=== PATIENT | female | born 1945 | race Caucasian/White ===

== ENCOUNTER 2019-01-12 15:04 | Emergency (ER) | payer MEDICARE, SELFPAY ==
[2019-01-12 15:05] VITALS: BP 192/105; PULSE 81; RESP 16; TEMP 36.8; O2SAT 97; BMI 19.5
--- NOTE | 2019-01-12 15:19 | ED.DCSUM_ITS ---
- ER Visit Summary Date of Service: 01/12/19 Chief Complaint: Facial laceration History of Present Illness: The patient is a 74 F presenting after fall. Patient states she woke up from her nap. She was trying to answer the phone and tripped over a register on the floor. She hit her head. She did not lose consciousness. No amnesia to the event. No vomiting. No headache. She is not on anticoagulants. Last tetanus is unknown. She is able to ambulate. No other injuries. Physical Examination: Vitals are stable. Patient is afebrile. Alert no acute distress. HEENT exam 2.5 cm laceration right forehead Neck is nontender Lungs are clear and equal bilaterally. Heart is regular rate and rhythm. Extremities are unremarkable. Skin is warm and dry. No focal neurologic deficit. Remainder of exam is unremarkable. Emergency Department Course and Treatment: She was given tetanus IM. Wound was irrigated. Anesthetized with lidocaine. 4, 5-0 simple sutures were placed. Patient tolerated this well. Advised wound care instructions. Advised return to the ED for worsening complaints. Disposition: Discharge home Impression: Facial laceration, laceration repair This note was generated with [employer] dictation software. It may contain incorrect words, spelling, and punctuation that were not noted in review of the chart prior to signing ED Disposition - Plan for ED Patient: Instructions: LACERATION, Face (Suture or Tape) Referrals: Az Kapadia MD [Primary Care Provider] -
[2019-01-12] MEDS: Diphth,Pertuss(Acell),Tet Vac 0.5 ML Vial IM (16:04)
== END 2019-01-12 16:18 | disposition home or self-care (01) ==
LOC: ED 15:45
PROVIDERS: Emergency Provider Emergency Medicine; Family Provider Family Medicine; PCP Family Medicine
DX: S01.81XA Laceration without foreign body of other part of head, initial encounter (principal); W01.198A Fall on same level from slipping, tripping and stumbling with subsequent striking against other object, initial encounter; Y93.9 Activity, unspecified; Y92.009 Unspecified place in unspecified non-institutional (private) residence as the place of occurrence of the external cause; Y99.9 Unspecified external cause status; Z23 Encounter for immunization
CPT/HCPCS: 12011; 90471; 90715; 99284

== ENCOUNTER → 2019-01-16 14:59 | Outpatient (CLI) | payer MEDICARE, SELFPAY ==
[2019-01-12 15:05] VITALS: BMI 19.5
[2019-01-16 15:02] LABS: Bacteria 0 SEEN /hpf (None Seen); Mucous, Urine 0 SEEN /hpf (<or=2+); Red Blood Cells-Urine 0 SEEN /hpf (0-5); Squamous Epithelial Cells - UA 0 SEEN /hpf (5-10); White Blood Cells 0 SEEN /hpf (0-5)
[2019-01-16 17:39] LABS: Color, Urine Yellow (Yellow); Glucose, Dipstick Normal (Normal); Ketone-Dipstick 5 mg/dl (Negative); Leukocyte Esterase-Dipstick Negative /ul (Negative); Nitrite-Dipstick Negative (Negative); Occult Blood-Urine Negative /ul (Negative); Protein-Dipstick 30 mg/dl (Negative); Urine Bilirubin Dipstick Negative (Negative); Urine Clarity Clear (Clear); Urine Urobilinogen Normal (Normal)
[2019-01-16 18:05] LABS: ALB/GLOB Ratio 1.1 RATIO (0.9-2.4); AST(SGOT) 21 U/L (15-37); Alanine Aminotransfer ALT/SGPT 15 U/L (13-56); Alkaline Phosphatase 128 U/L (45-117); Anion Gap 10 (5-15); BUN 10 mg/dL (7-18); BUN/Creat Ratio 16.3 RATIO (10-20); Calcium,Total 8.8 mg/dL (8.5-10.1); Chloride 106 mmol/L (98-107); Cholesterol 231 mg/dL (200); Creatinine, Serum 0.61 mg/dL (0.55-1.02); EST Glomerular Filtration Rate 102 mL/min (>60); Est Glom Filt Rate - Afr Amer 123 mL/min (>60); Globulin 3.6 g/dL (2.2-4.2); Glucose 102 mg/dL (74-106); High Density Lipoprotein 88 mg/dL; Potassium 3.3 mmol/L (3.5-5.1); Protein, Total 7.6 g/dL (6.4-8.2); Sodium Level 139 mmol/L (136-145); Thyroid Stim Hormone (TSH) 0.77 uIU/mL (0.358-3.74); Triglycerides 68 mg/dL; Very Low Density Lipoprotein 14 mg/dL (5-40)
[2019-01-16 18:09] LABS: Absolute Lymphocyte Count 2.32 X10^3/uL (0.83-4.51); Absolute Neutrophil Count 4.1 X10^3/uL (2.0-7.7); Basophil# 0.09 X10^3/uL; Basophil% 1.2 % (0-1); Eosinophil# 0.28 X10^3/uL; Eosinophils% 3.7 % (0-5); Hematocrit 32.2 % (37-47); Hemoglobin 9.9 g/dL (12.0-15.0); Lymphocyte # 2.32 X10^3/ul (4.0); Lymphocyte % 30.5 % (19-41); Mean Corp Hgb Conc 30.7 g/dL (32-36); Mean Corpuscular Hgb 27.5 pg (27.0-32.0); Mean Corpuscular Volume 89.4 fL (81-99); Mean Platelet Vol. 11.3 fl (6.2-12.0); Monocyte# 0.78 X10^3/uL; Monocyte% 10.2 % (0-10); NRBC Flagged by Analyzer 0 % (0-5); Neutrophil # 4.11 X10^3/uL (2.7-7.7); Platelet Count 383 K/mm3 (150-450); RBC Distribution Width CV 15.9 % (11.6-14.6); RBC Distribution Width SD 52.6 fl (35.1-43.9); White Blood Count 7.6 K/mm3 (4.4-11.0)
[2019-01-17 12:00] LABS: Ferritin 14 ng/mL (8-252); Iron 19 ug/dL (50-170); Iron Binding Capacity,Total 425 ug/dL (250-450); PERCENT IRON SATURATION 4.5 % (15.0-55.0)
[2019-01-17 12:29] LABS: Vitamin B12 307 pg/mL (211-911)
== END ==
PROVIDERS: Family Provider Family Medicine; PCP Family Medicine; Referring Provider Family Medicine; Visit Provider Family Medicine
DX: D64.9 Anemia, unspecified (principal); I10 Essential (primary) hypertension
CPT/HCPCS: 36415; 80053; 80061; 81001; 82607; 82728; 83540; 83550; 84443; 85025

== ENCOUNTER → 2019-01-24 11:27 | Outpatient (CLI) | payer MEDICARE, SELFPAY ==
[2019-01-12 15:05] VITALS: BMI 19.5
--- NOTE | 2019-01-24 11:36 | RAD_ITS ---
STUDY: X-RAY - LEFT WRIST REASON FOR EXAM: Female, 74 years old. Pain for 2 weeks after falling. Posterior swelling and redness. TECHNIQUE: 3 view(s) of the wrist were obtained. COMPARISON: None. FINDINGS: Demineralized osseous structures without a fracture deformity of the radius or ulna. Chondrocalcinosis of the radiocarpal joint. Normal distal radioulnar articulation. Normal carpal bones. Normal carpal articulations. There is degenerative arthrosis of the carpometacarpal articulation of the thumb. Normal second through fifth carpometacarpal articulations. Normal visualized metacarpal bones. Soft tissue swelling. RAD/Wrist min 3 Views IMPRESSION: Demineralized osseous structures without acute fracture deformity. 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 Electronically Signed: Emy Smallwood MD at 23:56 EST , Service support ,
[2019-01-24 14:31] LABS: Vitamin B12 344 pg/mL (211-911)
[2019-01-24 15:11] LABS: Ferritin 18 ng/mL (8-252); Iron 18 ug/dL (50-170); Iron Binding Capacity,Total 379 ug/dL (250-450); PERCENT IRON SATURATION 4.7 % (15.0-55.0); Uric Acid 2.9 mg/dL (2.6-6.0)
== END ==
PROVIDERS: Family Provider Family Medicine; PCP Family Medicine; Referring Provider Family Medicine; Visit Provider Family Medicine
DX: M25.532 Pain in left wrist (principal); D64.9 Anemia, unspecified
CPT/HCPCS: 36415; 73110; 82607; 82728; 82746; 83540; 83550; 84550

== ENCOUNTER → 2019-01-29 14:36 | Outpatient (CLI) | payer MEDICARE, SELFPAY ==
[2019-01-12 15:05] VITALS: BMI 19.5
--- NOTE | 2019-01-29 14:38 | ECHOD_ITS ---
Version 2 Reason For Study: LVH Procedure This was a 2D Doppler, Color Flow transthoracic echocardiogram. The study was technically difficult. Exam performed in department. Left Ventricle Normal LV size. Left ventricular systolic function is normal. Stage 2 diastolic dysfunction. The estimated ejection fraction is 60 %. No regional wall motion abnormalities noted. Right Ventricle Normal RV size. Normal systolic function. Atria Normal left atrium. Normal right atrium. Mitral Valve Normal mitral valve. Tricuspid Valve Normal tricuspid valve. Mild (1+) tricuspid valve insufficiency. Pulmonary artery systolic pressure is 44 mmHg. Aortic Valve Normal aortic valve. Pulmonic Valve Normal pulmonic valve. Great Vessels Normal aortic root. The pulmonary artery is normal size. Normal inferior vena cava. Pericardium/Pleural Trivial pericardial effusion. MMode/2D Measurements & Calculations LVIDd: 3.9 cm IVSd: 0.84 cm Ao root diam: 3.3 cm LVIDs: 2.7 cm LVPWd: 0.77 cm RVDd: 3.6 cm FS: 31.8 % LAV(MOD-bp): 48.5 ml LA A4 area: 17.2 cm2 LA dimension(2D): 4.0 cm LAV(MOD-bp) Indexed: 30.2 ml/m2 LAV(MOD-sp2): 53.2 ml LAV(MOD-sp4): 42.3 ml RA A4 area: 11.3 cm2 Time Measurements MV dec time: 0.17 sec Doppler Measurements & Calculations MV E max nicolás: 107.6 cm/sec Lat Peak E' Nicolás: 6.1 cm/sec Med Peak E' Nicolás: 6.1 cm/sec MV A max nicolás: 82.7 cm/sec E/E' lat: 17.7 E/E' med: 17.7 MV E/A: 1.3 Ao V2 max: 162.1 cm/sec LV V1 max: 135.0 cm/sec PA V2 max: 90.3 cm/sec Ao max P.5 mmHg LV V1 max P.3 mmHg TR max nicolás: 315.2 cm/sec TR max P.7 mmHg Interpretation Summary Normal LV size. Left ventricular systolic function is normal. Stage 2 diastolic dysfunction. Mild (1+) tricuspid valve insufficiency. Trivial pericardial effusion. The estimated ejection fraction is 60 %. Ordering Physician: Az Bernardo Referring Physician: Az Bernardo Performed By: Nisha Caballero, CAITIE, RVT
== END ==
PROVIDERS: Family Provider Family Medicine; PCP Family Medicine; Referring Provider Family Medicine; Visit Provider Family Medicine
DX: I51.7 Cardiomegaly (principal)
CPT/HCPCS: 93306

== ENCOUNTER → 2019-02-15 09:45 | Outpatient (CLI) | payer MEDICARE, SELFPAY ==
[2019-02-15 12:20] LABS: Absolute Lymphocyte Count 1.05 X10^3/uL (0.83-4.51); Absolute Neutrophil Count 4.2 X10^3/uL (2.0-7.7); Basophil# 0.05 X10^3/uL; Basophil% 0.8 % (0-1); Eosinophil# 0.23 X10^3/uL; Eosinophils% 3.7 % (0-5); Hematocrit 35.2 % (37-47); Hemoglobin 10.9 g/dL (12.0-15.0); Lymphocyte # 1.05 X10^3/ul (4.0); Lymphocyte % 16.7 % (19-41); Mean Corpuscular Hgb 26.3 pg (27.0-32.0); Mean Platelet Vol. 10.5 fl (6.2-12.0); Monocyte# 0.78 X10^3/uL; Monocyte% 12.4 % (0-10); NRBC Flagged by Analyzer 0 % (0-5); Neutrophil # 4.16 X10^3/uL (2.7-7.7); Neutrophil % 65.9 % (47-70); Platelet Count 361 K/mm3 (150-450); RBC Distribution Width CV 17.4 % (11.6-14.6); RBC Distribution Width SD 54.2 fl (35.1-43.9); Red Blood Count 4.14 M/mm3 (4.2-5.4); White Blood Count 6.3 K/mm3 (4.4-11.0)
[2019-02-15 13:25] LABS: Anion Gap 8 (5-15); BUN 11 mg/dL (7-18); BUN/Creat Ratio 17.4 RATIO (10-20); Calcium,Total 8.8 mg/dL (8.5-10.1); Chloride 105 mmol/L (98-107); Creatinine, Serum 0.63 mg/dL (0.55-1.02); EST Glomerular Filtration Rate 98 mL/min (>60); Est Glom Filt Rate - Afr Amer 119 mL/min (>60); Ferritin 31 ng/mL (8-252); Glucose 86 mg/dL (74-106); Iron 40 ug/dL (50-170); Iron Binding Capacity,Total 364 ug/dL (250-450); Potassium 3.7 mmol/L (3.5-5.1); Sodium Level 137 mmol/L (136-145)
== END ==
PROVIDERS: Family Provider Family Medicine; PCP Family Medicine; Visit Provider Family Medicine
DX: D50.9 Iron deficiency anemia, unspecified (principal); I10 Essential (primary) hypertension
CPT/HCPCS: 36415; 80048; 82728; 83540; 83550; 85025

== ENCOUNTER → 2019-07-03 11:06 | Outpatient (CLI) | payer MEDICARE, SELFPAY ==
[2019-07-03 15:03] LABS: Absolute Lymphocyte Count 1.97 X10^3/uL (0.83-4.51); Absolute Neutrophil Count 8.3 X10^3/uL (2.0-7.7); Basophil# 0.03 X10^3/uL; Basophil% 0.3 % (0-1); Eosinophil# 0.15 X10^3/uL; Eosinophils% 1.3 % (0-5); Hematocrit 36.2 % (37-47); Hemoglobin 11.2 g/dL (12.0-15.0); Lymphocyte # 1.97 X10^3/ul (4.0); Lymphocyte % 17.2 % (19-41); Mean Corp Hgb Conc 30.9 g/dL (32-36); Mean Corpuscular Volume 97.1 fL (81-99); Mean Platelet Vol. 9.8 fl (6.2-12.0); Monocyte# 1.04 X10^3/uL; Monocyte% 9.1 % (0-10); NRBC Flagged by Analyzer 0 % (0-5); Neutrophil # 8.25 X10^3/uL (2.7-7.7); Neutrophil % 71.8 % (47-70); Platelet Count 604 K/mm3 (150-450); RBC Distribution Width CV 13.8 % (11.6-14.6); RBC Distribution Width SD 49.1 fl (35.1-43.9); Red Blood Count 3.73 M/mm3 (4.2-5.4); White Blood Count 11.5 K/mm3 (4.4-11.0)
[2019-07-03 15:24] LABS: AST(SGOT) 18 U/L (15-37); Alanine Aminotransfer ALT/SGPT 18 U/L (13-56); Albumin, Serum 3.6 g/dL (3.2-5.0); Alkaline Phosphatase 90 U/L (45-117); Anion Gap 11 (5-15); BUN 19 mg/dL (7-18); BUN/Creat Ratio 20.5 RATIO (10-20); Calcium,Total 9.2 mg/dL (8.5-10.1); Chloride 98 mmol/L (98-107); Creatinine, Serum 0.93 mg/dL (0.55-1.02); EST Glomerular Filtration Rate 63 mL/min (>60); Est Glom Filt Rate - Afr Amer 76 mL/min (>60); Ferritin 31 ng/mL (8-252); Globulin 3.5 g/dL (2.2-4.2); Glucose 115 mg/dL (74-106); Iron 59 ug/dL (50-170); Iron Binding Capacity,Total 331 ug/dL (250-450); Potassium 3.6 mmol/L (3.5-5.1); Protein, Total 7.1 g/dL (6.4-8.2); Sodium Level 134 mmol/L (136-145)
== END ==
PROVIDERS: PCP Family Medicine; Visit Provider Family Medicine
DX: D50.9 Iron deficiency anemia, unspecified (principal); I10 Essential (primary) hypertension
CPT/HCPCS: 36415; 80053; 82728; 83540; 83550; 85025

== ENCOUNTER → 2019-11-06 10:15 | Outpatient (CLI) | payer MEDICARE, SELFPAY ==
[2019-11-06 12:38] LABS: Absolute Lymphocyte Count 1.64 X10^3/uL (0.83-4.51); Absolute Neutrophil Count 4.6 X10^3/uL (2.0-7.7); Basophil# 0.06 X10^3/uL; Basophil% 0.8 % (0-1); Eosinophil# 0.23 X10^3/uL; Eosinophils% 3.1 % (0-5); Hematocrit 41.6 % (37-47); Hemoglobin 13.8 g/dL (12.0-15.0); Lymphocyte # 1.64 X10^3/ul (4.0); Lymphocyte % 22.2 % (19-41); Mean Corp Hgb Conc 33.2 g/dL (32-36); Mean Corpuscular Volume 93.5 fL (81-99); Mean Platelet Vol. 10.6 fl (6.2-12.0); Monocyte% 10.8 % (0-10); NRBC Flagged by Analyzer 0 % (0-5); Neutrophil # 4.63 X10^3/uL (2.7-7.7); Neutrophil % 62.8 % (47-70); Platelet Count 389 K/mm3 (150-450); RBC Distribution Width CV 14.6 % (11.6-14.6); RBC Distribution Width SD 50.2 fl (35.1-43.9); Red Blood Count 4.45 M/mm3 (4.2-5.4); White Blood Count 7.4 K/mm3 (4.4-11.0)
[2019-11-06 12:55] LABS: ALB/GLOB Ratio 1.3 RATIO (0.9-2.4); AST(SGOT) 22 U/L (15-37); Alanine Aminotransfer ALT/SGPT 18 U/L (13-56); Albumin, Serum 4.3 g/dL (3.2-5.0); Alkaline Phosphatase 116 U/L (45-117); Anion Gap 9 (5-15); BUN 9 mg/dL (7-18); BUN/Creat Ratio 13.3 RATIO (10-20); Calcium,Total 9.6 mg/dL (8.5-10.1); Chloride 100 mmol/L (98-107); Creatinine, Serum 0.68 mg/dL (0.55-1.02); EST Glomerular Filtration Rate 90 mL/min (>60); Est Glom Filt Rate - Afr Amer 109 mL/min (>60); Ferritin 100 ng/mL (8-252); Globulin 3.2 g/dL (2.2-4.2); Glucose 112 mg/dL (74-106); Iron 154 ug/dL (50-170); Iron Binding Capacity,Total 344 ug/dL (250-450); Potassium 3.7 mmol/L (3.5-5.1); Protein, Total 7.5 g/dL (6.4-8.2); Sodium Level 136 mmol/L (136-145)
[2019-11-08 09:16] LABS: Hemoglobin A1c 5.3 % (3.8-5.6)
== END ==
PROVIDERS: PCP Family Medicine; Referring Provider Family Medicine; Visit Provider Family Medicine
DX: R73.09 Other abnormal glucose (principal); I10 Essential (primary) hypertension; D50.9 Iron deficiency anemia, unspecified
CPT/HCPCS: 36415; 80053; 82728; 83036; 83540; 83550; 85025

== ENCOUNTER → 2020-05-06 09:43 | Outpatient (CLI) | payer MEDICARE, SELFPAY ==
[2020-05-06 11:55] LABS: Bacteria 0 SEEN /hpf (None Seen); Mucous, Urine 0 SEEN /hpf (<or=2+); Red Blood Cells-Urine 0 SEEN /hpf (0-5)
[2020-05-06 12:43] LABS: Absolute Lymphocyte Count 1.25 X10^3/uL (0.83-4.51); Absolute Neutrophil Count 5.1 X10^3/uL (2.0-7.7); Basophil# 0.08 X10^3/uL; Basophil% 1.1 % (0-1); Eosinophil# 0.13 X10^3/uL; Eosinophils% 1.7 % (0-5); Hematocrit 40.7 % (37-47); Hemoglobin 13.3 g/dL (12.0-15.0); Lymphocyte # 1.25 X10^3/ul (4.0); Lymphocyte % 16.4 % (19-41); Mean Corp Hgb Conc 32.7 g/dL (32-36); Mean Corpuscular Hgb 33.1 pg (27.0-32.0); Mean Corpuscular Volume 101.2 fL (81-99); Mean Platelet Vol. 10.3 fl (6.2-12.0); Monocyte# 1.02 X10^3/uL; Monocyte% 13.4 % (0-10); NRBC Flagged by Analyzer 0 % (0-5); Neutrophil % 67.1 % (47-70); Platelet Count 315 K/mm3 (150-450); RBC Distribution Width CV 13.5 % (11.6-14.6); RBC Distribution Width SD 50.1 fl (35.1-43.9); Red Blood Count 4.02 M/mm3 (4.2-5.4); White Blood Count 7.6 K/mm3 (4.4-11.0)
[2020-05-06 13:31] LABS: ALB/GLOB Ratio 1.1 RATIO (0.9-2.4); AST(SGOT) 24 U/L (15-37); Alanine Aminotransfer ALT/SGPT 19 U/L (13-56); Albumin, Serum 4.1 g/dL (3.2-5.0); Alkaline Phosphatase 112 U/L (45-117); Anion Gap 8 (5-15); BUN 13 mg/dL (7-18); BUN/Creat Ratio 15.5 RATIO (10-20); Calcium,Total 9.3 mg/dL (8.5-10.1); Chloride 101 mmol/L (98-107); Cholesterol 259 mg/dL (200); Creatinine, Serum 0.84 mg/dL (0.55-1.02); EST Glomerular Filtration Rate 70 mL/min (>60); Est Glom Filt Rate - Afr Amer 85 mL/min (>60); Ferritin 128 ng/mL (8-252); Globulin 3.6 g/dL (2.2-4.2); Glucose 147 mg/dL (74-106); High Density Lipoprotein 124 mg/dL; Iron 117 ug/dL (50-170); Iron Binding Capacity,Total 328 ug/dL (250-450); Potassium 3.2 mmol/L (3.5-5.1); Protein, Total 7.7 g/dL (6.4-8.2); Sodium Level 136 mmol/L (136-145); Thyroid Stim Hormone (TSH) 0.75 uIU/mL (0.358-3.74); Triglycerides 42 mg/dL; Very Low Density Lipoprotein 8 mg/dL (5-40)
[2020-05-06 15:43] LABS: Color, Urine Yellow (Yellow); Glucose, Dipstick Normal (Normal); Ketone-Dipstick Negative (Negative); Leukocyte Esterase-Dipstick 25 /ul (Negative); Nitrite-Dipstick Negative (Negative); Occult Blood-Urine Negative /ul (Negative); Protein-Dipstick 15 mg/dl (Negative); Urine Bilirubin Dipstick Negative (Negative); Urine Clarity Clear (Clear); Urine Urobilinogen Normal (Normal)
[2020-05-06 16:02] LABS: Renal Epithelial Cells 0-5 SEEN /hpf (0-5); Squamous Epithelial Cells - UA 5-10 SEEN /hpf (5-10)
[2020-05-06 16:03] LABS: Hyaline Cast 5-10 SEEN /lpf (0-5); White Blood Cells 0-5 SEEN /hpf (0-5)
== END ==
LOC: MFPLAB 09:46
PROVIDERS: PCP Family Medicine; Referring Provider Family Medicine; Visit Provider Family Medicine
DX: I10 Essential (primary) hypertension (principal); D50.9 Iron deficiency anemia, unspecified; R73.09 Other abnormal glucose
CPT/HCPCS: 36415; 80053; 80061; 81001; 82728; 83036; 83540; 83550; 84443; 85025

== ENCOUNTER → 2020-05-26 09:25 | Outpatient (CLI) | payer MEDICARE, SELFPAY ==
[2020-05-26 12:21] LABS: Potassium 3.5 mmol/L (3.5-5.1)
== END ==
PROVIDERS: PCP Family Medicine; Referring Provider Family Medicine; Visit Provider Family Medicine
DX: E87.6 Hypokalemia (principal)
CPT/HCPCS: 36415; 84132

== ENCOUNTER 2021-04-09 09:44 | Outpatient (CLI) | payer MEDICARE, SELFPAY ==
[2021-04-09 12:13] LABS: Absolute Lymphocyte Count 2.01 X10^3/uL (0.83-4.51); Absolute Neutrophil Count 3.1 X10^3/uL (2.0-7.7); Basophil# 0.04 X10^3/uL; Basophil% 0.7 % (0-1); Eosinophil# 0.13 X10^3/uL; Eosinophils% 2.1 % (0-5); Hematocrit 39.2 % (37-47); Hemoglobin 13.2 g/dL (12.0-15.0); Lymphocyte # 2.01 X10^3/ul (0.83-4.51); Mean Corp Hgb Conc 33.7 g/dL (32-36); Mean Corpuscular Hgb 32.8 pg (27.0-32.0); Mean Corpuscular Volume 97.3 fL (81-99); Monocyte# 0.82 X10^3/uL; Monocyte% 13.5 % (0-10); NRBC Flagged by Analyzer 0 % (0-5); Neutrophil # 3.07 X10^3/uL (2.7-7.7); Neutrophil % 50.4 % (47-70); Platelet Count 326 K/mm3 (150-450); RBC Distribution Width CV 12.8 % (11.6-14.6); RBC Distribution Width SD 45.9 fl (35.1-43.9); Red Blood Count 4.03 M/mm3 (4.2-5.4); White Blood Count 6.1 K/mm3 (4.4-11.0)
[2021-04-09 12:30] LABS: Vitamin B12 267 pg/mL (211-911)
[2021-04-09 12:48] LABS: ALB/GLOB Ratio 1.1 RATIO (0.9-2.4); AST(SGOT) 24 U/L (15-37); Alanine Aminotransfer ALT/SGPT 19 U/L (13-56); Alkaline Phosphatase 108 U/L (45-117); Anion Gap 11 (5-15); BUN 12 mg/dL (7-18); BUN/Creat Ratio 18.8 RATIO (10-20); Calcium,Total 9.4 mg/dL (8.5-10.1); Chloride 99 mmol/L (98-107); Cholesterol 286 mg/dL (200); Creatinine, Serum 0.64 mg/dL (0.55-1.02); EST Glomerular Filtration Rate 96 mL/min (>60); Est Glom Filt Rate - Afr Amer 117 mL/min (>60); Ferritin 80 ng/mL (8-252); Globulin 3.6 g/dL (2.2-4.2); Glucose 94 mg/dL (74-106); High Density Lipoprotein 135 mg/dL; Iron 106 ug/dL (50-170); Iron Binding Capacity,Total 314 ug/dL (250-450); Potassium 3.6 mmol/L (3.5-5.1); Protein, Total 7.6 g/dL (6.4-8.2); Sodium Level 132 mmol/L (136-145); Thyroid Stim Hormone (TSH) 0.63 uIU/mL (0.358-3.74); Triglycerides 58 mg/dL; Very Low Density Lipoprotein 12 mg/dL (5-40)
== END 2021-04-09 23:59 | disposition home or self-care (01) ==
LOC: MFPLAB 09:45
PROVIDERS: PCP Family Medicine; Referring Provider Family Medicine; Visit Provider Family Medicine
DX: I10 Essential (primary) hypertension (principal); D64.9 Anemia, unspecified
CPT/HCPCS: 36415; 80053; 80061; 81001; 82607; 82728; 82746; 83540; 83550; 84443; 85025

== ENCOUNTER 2021-07-23 21:03 | Observation (INO) | payer MEDICARE, SELFPAY ==
[2021-07-23 21:05] VITALS: BP 142/70; PULSE 90; RESP 16; TEMP 36.2; O2SAT 98; BMI 17.7
--- NOTE | 2021-07-23 21:42 | EX.ED.DYSGE1 ---
HPI History of Present Illness Chief Complaint: Abn Labs Informant: patient and PCP Onset/Context/Timing Onset: Today Worsened by: Nothing Relieved by: Nothing Narrative Narrative: Patient present with hyponatremia and hypokalemia that was noticed today. Patient had labs drawn at her doctor's office today. Patient's primary care physician receives results tonight and referred the patient to the emergency department. Patient denies any symptoms. Patient states she feels fine. Patient denies any headaches or weakness. Patient denies any recent nausea or vomiting. Patient denies any urinary complaints. PFSH [facility] Medical History (Updated 07/23/21 @ 23:[address] Otto Medellin DO) Hypertension Medical History no medical history Home Medications amlodipine 10 mg PO DAILY 07/23/21 [History Last Taken Unknown] lisinopril 20 mg PO DAILY 07/23/21 [History Last Taken Unknown] Allergy/AdvReac Type Severity Reaction Status Date / Time rivaroxaban [From Xarelto] AdvReac BLOOD IN Verified 07/23/21 21:06 STOOL Surgical History (Updated 07/23/21 @ 21:[address] Otto Medellin DO) History of total replacement of both hip joints Social History Smoking Status: Never smoker ROS ROS ED Constitutional Constitutional ED: Denies chills or fever(s) Eyes Eyes: Denies blurry vision or change in vision ENT ENT ED: Denies rhinorrhea or sore throat Cardiovascular Cardiovascular: Denies chest pain or palpitations Respiratory/Chest Respiratory/Chest: Denies cough or dyspnea Gastrointestinal Gastrointestinal: Denies nausea or vomiting Genitourinary Genitourinary ED: Denies dysuria or hematuria Musculoskeletal Musculoskeletal: Denies back pain or neck pain Integumentary Denies abscess or rash Neurologic Neurologic: Denies headache(s) or weakness Allergic/Immunologic Allergic/Immunologic ED: Denies mouth swelling or urticaria EXAM Physical Exam Const Vital Signs: 07/23/21 21:05 07/23/21 21:11 07/23/21 23:37 Temperature 97.2 F L Temperature Source Temporal Pulse Rate 90 80 Respiratory Rate 16 16 Respiratory Effort Normal Non-Labored Respiratory Pattern Normal Blood Pressure 142/70 H 130/68 H Blood Pressure Mean 94 88 Pulse Ox 98 100 Oxygen Delivery Method Room Air Room Air Positive well nourished and well developed General Appearance ED: well developed and NAD HEENT Reports moist mucous membranes Neck supple and no JVD Resp normal respiratory effort and clear to auscultation bilaterally Cardio regular rate, regular rhythm and no murmurs GI normal to inspection, nondistended, normoactive bowel sounds and non-tender Palpation: soft Extremity normal to inspection General Extremety ED: Negative for edema or tenderness General Extremity: Negative for edema Neuro oriented x3, CN's II-XII intact bilaterally and no sensory deficits noted Sensorium / Orientation: alert Motor Exam: strength 5/5 throughout Psych mental status grossly normal Skin no rashes or lesions noted MDM MDM MDM Narrative Medical decision making narrative: Patient was given IV fluids. CBC was within normal limits. Basic metabolic profile was repeated and showed a sodium of 124 and potassium of 2.9 and a chloride of 90. Urinalysis does not show any evidence of urinary tract infection. Patient was given a dose of oral and IV potassium. Case was discussed with the hospitalist. She will admit the patient for observation. Patient understood and was agreeable with the plan. All questions were answered. Lab Data Attestation: I reviewed the patient's lab results. Labs: Laboratory Results - last 24 hr 07/23/21 07/23/21 07/23/21 22:00 22:00 22:20 WBC 9.0 RBC 3.82 L Hgb 12.7 Hct 35.8 L MCV 93.7 MCH 33.2 H MCHC 35.5 RDW Std Deviation 39.6 RDW Coeff of Mae 11.5 L Plt Count 288 MPV 9.1 Immature Gran % (Auto) 0.400 Neut % (Auto) 63.6 Lymph % (Auto) 19.2 [place] % (Auto) 14.7 H Eos % (Auto) 1.8 Baso % (Auto) 0.3 Absolute Neuts (auto) 5.7 Absolute Lymphs (auto) 1.72 Nucleated RBC % 0 Sodium 124 L Potassium 2.9 L Chloride 90 L Carbon Dioxide 21.0 Anion Gap 13 BUN 14 Creatinine 0.64 Estim Creat Clear Calc 38.29 Est GFR (MDRD) Af Amer 117 Est GFR (MDRD) Non-Af 97 BUN/Creatinine Ratio 22.0 H Glucose 93 Calcium 8.8 Urine Color Yellow Urine Clarity Clear Urine pH 6.5 Ur Specific [place] 1.010 Urine Protein Negative Urine Glucose (UA) Normal Urine Ketones Negative Urine Occult Blood Negative Urine Nitrite Negative Urine Bilirubin Negative Urine Urobilinogen Normal Ur Leukocyte Esterase Negative Urine RBC 0 SEEN Urine WBC 0 SEEN Ur Squamous Epith Cells 0 SEEN Urine Bacteria 0 SEEN Urine Mucus 0 SEEN Discharge Plan Triage Chief Complaint: Abn Labs ED Provider: Otto Medellin Dx/Rx/DC Orders Clinical Impression: Hyponatremia, Hypokalemia Prescriptions: No Action lisinopril 20 mg tablet 20 mg PO DAILY RF: 0 amlodipine 10 mg tablet 10 mg PO DAILY RF: 0 Primary Care Provider: Az Bernardo Referrals: Az Bernardo MD [Primary Care Provider] - Disposition Disposition: Acute Care Hospital [facility]
[2021-07-23] MEDS: 0.9% Normal Saline 1,000 ML 1000 ML IV (22:02)
[2021-07-23 22:12] LABS: Absolute Lymphocyte Count 1.72 X10^3/uL (0.83-4.51); Absolute Neutrophil Count 5.7 X10^3/uL (2.0-7.7); Basophil# 0.03 X10^3/uL; Basophil% 0.3 % (0-1); Eosinophil# 0.16 X10^3/uL; Eosinophils% 1.8 % (0-5); Hematocrit 35.8 % (37-47); Hemoglobin 12.7 g/dL (12.0-15.0); Lymphocyte # 1.72 X10^3/ul (0.83-4.51); Lymphocyte % 19.2 % (19-41); Mean Corp Hgb Conc 35.5 g/dL (32-36); Mean Corpuscular Hgb 33.2 pg (27.0-32.0); Mean Corpuscular Volume 93.7 fL (81-99); Mean Platelet Vol. 9.1 fl (6.2-12.0); Monocyte# 1.32 X10^3/uL; Monocyte% 14.7 % (0-10); NRBC Flagged by Analyzer 0 % (0-5); Neutrophil # 5.69 X10^3/uL (2.7-7.7); Neutrophil % 63.6 % (47-70); Platelet Count 288 K/mm3 (150-450); RBC Distribution Width CV 11.5 % (11.6-14.6); RBC Distribution Width SD 39.6 fl (35.1-43.9); Red Blood Count 3.82 M/mm3 (4.2-5.4)
[2021-07-23 22:29] LABS: Bacteria 0 SEEN /hpf (None Seen); Mucous, Urine 0 SEEN /hpf (<or=2+); Red Blood Cells-Urine 0 SEEN /hpf (0-5); Squamous Epithelial Cells - UA 0 SEEN /hpf (5-10); White Blood Cells 0 SEEN /hpf (0-5)
[2021-07-23 22:39] LABS: Color, Urine Yellow (Yellow); Glucose, Dipstick Normal (Normal); Ketone-Dipstick Negative (Negative); Leukocyte Esterase-Dipstick Negative /ul (Negative); Nitrite-Dipstick Negative (Negative); Occult Blood-Urine Negative /ul (Negative); Protein-Dipstick Negative (Negative); Urine Bilirubin Dipstick Negative (Negative); Urine Clarity Clear (Clear); Urine Urobilinogen Normal (Normal); Urine pH 6.5 (5.0 - 8.0)
[2021-07-23 22:44] LABS: Anion Gap 13 (5-15); BUN 14 mg/dL (7-18); Calcium,Total 8.8 mg/dL (8.5-10.1); Chloride 90 mmol/L (98-107); Creatinine, Serum 0.64 mg/dL (0.55-1.02); EST Glomerular Filtration Rate 97 mL/min (>60); Est Glom Filt Rate - Afr Amer 117 mL/min (>60); Estimated Creatinine Clearance 38.29 ml/min; Glucose 93 mg/dL (74-106); Potassium 2.9 mmol/L (3.5-5.1); Sodium Level 124 mmol/L (136-145)
[2021-07-23] MEDS: Potassium Chloride Oral Tablet 20 MEQ 40 MEQ PO (23:05)
[2021-07-23] MEDS: Potassium Chloride 10mEq/100mL 10 MEQ/100 ML IV.SOLN. 100 MEQ IV BOLUS (23:35)
[2021-07-23 23:37] VITALS: BP 130/68; PULSE 80; RESP 16; O2SAT 100
--- NOTE | 2021-07-23 23:51 | PCM.HP.STD ---
HPI - General General Date of Admission: 07/23/21 Date of Service: 07/23/21 Chief Complaint: Abnormal labs HPI Narrative The patient is a 76 y/o F w/ PMHx: HTN otherwise healthy who presents to the [facility] ED on 07/23/21 with history of recent routine HTN PCP visit follow-up with routine labs obtained at that time with call from her PCP on day of presentation with recommendation to present to the ED for evaluation as her Na 122 although patient denies fatigue, malaise, headache, nausea, confusion or ataxia but given concern by her PCP presented to the ED for further evaluation. Patient denies any usage of any diuretic therapy or [id number] supplementations. Work-up in the ED included T97.2, heart rate 90, BP 142/70, respiratory rate 16, 98% on room air, CBC with WC 9, hemoglobin 12.7, platelet 288 without marked shift, BMP with sodium 124, potassium 2.9, chloride 90, urinalysis with no obvious acute evidence of dehydration or urinary tract infection. In the ED patient ministered potassium supplementation 40 mill equivalent p.o. x1 and normal saline. Given patient advanced age and concerns ED physician requested patient be admitted and evaluated. [facility] Medical History (Updated 07/24/21 @ 01:[address] Xochitl Pennington MD) GI bleed Hypertension Medical History no medical history Home Medications amlodipine 10 mg PO DAILY 07/23/21 [History Last Taken Unknown] lisinopril 20 mg PO DAILY 07/23/21 [History Last Taken Unknown] Allergy/AdvReac Type Severity Reaction Status Date / Time rivaroxaban [From Xarelto] AdvReac BLOOD IN Verified 07/23/21 21:06 STOOL no significant family history (Denies any marked maternal or paternal family history including HD, DM, CA.) Surgical History (Updated 07/23/21 @ 21:[address] Otto Medellin DO) History of total replacement of both hip joints Social History (Updated 07/24/21 @ 01:[address] Xochitl Pennington MD) household members: other details: She notes that her son currently lives with her. Smoking Status: Never smoker alcohol intake: current alcohol intake frequency: a few times a month Alcohol type: wine substance use type: does not use ROS ROS Narrative Admission Review of Systems: CONSTITUTIONAL: No weight loss, fever, chills, weakness or fatigue. HEENT: Eyes: No visual loss, blurred vision, double vision or yellow sclerae. Ears, Nose, Throat: No hearing loss, sneezing, congestion, runny nose or sore throat. SKIN: No rash or itching, lesions, wounds. CARDIOVASCULAR: No chest pain, chest pressure or chest discomfort, palpitations, edema, orthopnea, syncopal events. RESPIRATORY: No shortness of breath, cough or sputum, wheezing, hemoptysis. GASTROINTESTINAL: No anorexia, nausea, vomiting or diarrhea, abdominal pain, melena, BRBPR. GENITOURINARY: No dysuria, frequency, urgency or retention. NEUROLOGICAL: No headache, dizziness, syncope, paralysis, ataxia, numbness or tingling in the extremities, focal weakness, change in bowel or bladder control, seizure. MUSCULOSKELETAL: + muscle, back pain, joint pain or stiffness. HEMATOLOGIC: + Hx anemia, bleeding or bruising. LYMPHATICS: No enlarged nodes. No history of splenectomy. PSYCHIATRIC: No history of depression or anxiety. ENDOCRINOLOGIC: No reports of sweating, cold or heat intolerance. No polyuria or polydipsia. ALLERGIES: No history of asthma, hives, eczema or rhinitis. Vital Signs Vital Signs Vital Signs: 07/23/21 21:05 07/23/21 21:11 07/23/21 23:37 Temperature 97.2 F L Temperature Source Temporal Pulse Rate 90 80 Respiratory Rate 16 16 Respiratory Effort Normal Non-Labored Respiratory Pattern Normal Blood Pressure 142/70 H 130/68 H Blood Pressure Mean 94 88 Pulse Ox 98 100 Oxygen Delivery Method Room Air Room Air Weight Weight: 110 lb Body Mass Index (BMI) 17.7 Physical Exam Narrative Physical Examination: General: Awake, alert, oriented x 3 and cooperative, seated upright in the ED bed in no apparent distress. Skin: Normal color, normal turgor, no icterus, no cyanosis. HEENT: AT/NC, EOMI, PERRLA, MMM, no carotid bruits or JVD noted. Lungs: Mild diminished, greater bases, poor effort, no rales, ronchi or wheezing. Heart: Currently regular rate and rhythm; no gallop, rub audible. Abdomen: Soft, NTTP, ND, normal BS, no HSM. Extremities: No cyanosis, clubbing, or edema. Neurological: Patient awake, alert, oriented as noted, cognitive function intact; pupils equally reactive to light and accommodation, cranial nerves II-XII grossly normal, moving all 4 extremities, no focal deficits, strength preserved. Psychiatric: Affect appears mildly fatigued otherwise normal, no acute evidence of depressive or anxiety feelings. Results Lab / Micro Data Result Diagrams: 07/23/21 22:00 07/23/21 22:00 Labs: Laboratory Results - last 24 hr 07/23/21 22:00: WBC 9.0, RBC 3.82 L, Hgb 12.7, Hct 35.8 L, MCV 93.7, MCH 33.2 H, MCHC 35.5, RDW Std Deviation 39.6, RDW Coeff of Mae 11.5 L, Plt Count 288, MPV 9.1, Immature Gran % (Auto) 0.400, Neut % (Auto) 63.6, Lymph % (Auto) 19.2, [place] % (Auto) 14.7 H, Eos % (Auto) 1.8, Baso % (Auto) 0.3, Absolute Neuts (auto) 5.7, Absolute Lymphs (auto) 1.72, Nucleated RBC % 0 07/23/21 22:00: Sodium 124 L, Potassium 2.9 L, Chloride 90 L, Carbon Dioxide 21.0, Anion Gap 13, BUN 14, Creatinine 0.64, Estim Creat Clear Calc 38.29, Est GFR (MDRD) Af Amer 117, Est GFR (MDRD) Non-Af 97, BUN/Creatinine Ratio 22.0 H, Glucose 93, Calcium 8.8 07/23/21 22:20: Urine Color Yellow, Urine Clarity Clear, Urine pH 6.5, Ur Specific [place] 1.010, Urine Protein Negative, Urine Glucose (UA) Normal, Urine Ketones Negative, Urine Occult Blood Negative, Urine Nitrite Negative, Urine Bilirubin Negative, Urine Urobilinogen Normal, Ur Leukocyte Esterase Negative, Urine RBC 0 SEEN, Urine WBC 0 SEEN, Ur Squamous Epith Cells 0 SEEN, Urine Bacteria 0 SEEN, Urine Mucus 0 SEEN Assessment & Plan Assessment/Plan (1) Hyponatremia: (2) Hypokalemia: PLAN: The patient is a 76 y/o F w/ PMHx: HTN otherwise healthy who presents to the [facility] ED on 07/23/21 with history of recent routine HTN PCP visit follow-up with routine labs obtained at that time with call from her PCP on day of presentation with recommendation to present to the ED for evaluation as her Na 122 although patient denies fatigue, malaise, headache, nausea, confusion or ataxia but given concern by her PCP presented to the ED for further evaluation. #1. Acute Hyponatremia, Unclear specific etiology: Admission Na 124 with outpatient PCP on day of evaluation 122, baseline appearance 130s although patient last 04/09/2021 had been 132, appears euvolemic, will continue to closely monitor, will judiciously hydrate given unclear etiology pending FeNa, Cherrie, UOsm, TSH and FT4, cortisol with low threshold to obtain Nephrology consultation if not improving or trending of repeat BMP not improving. Patient not appropriate for any consideration of hypertonic saline given she has no headache, nausea, ataxia or confusion. #2. Hypokalemia: Admission K+ 2.9, magnesium level requested, supplementation given, repeat level in AM. #3. Hypertension: Continue home regimen including lisinopril, amlodipine with hold parameters as needed, PRN hydralazine. #4. DVT prophylaxis: SCDs, Lovenox. Charges/Coding Visit Charges OBSV E&M: 99101 Initial observation care L3
[2021-07-24] VITALS (9 sets, daily range): BP systolic 130–139; BP diastolic 66–73; PULSE 77–112; RESP 16–18; TEMP 36.1–36.8; O2SAT 99–100; BMI 18.5
[2021-07-24 01:02] LABS: Magnesium 1.8 mg/dL (1.6-2.6)
[2021-07-24] MEDS: 0.9% Normal Saline 1,000 ML 100 ML IV (01:20)
[2021-07-24 01:42] LABS: AST(SGOT) 21 U/L (15-37); Alanine Aminotransfer ALT/SGPT 16 U/L (13-56); Albumin, Serum 4.2 g/dL (3.2-5.0); Alkaline Phosphatase 102 U/L (45-117); Bilirubin, Direct 0.19 mg/dL (0.00-0.30); Protein, Total 7.2 g/dL (6.4-8.2)
[2021-07-24 02:07] LABS: Creatinine, Urine (random) < 13.00 mg/dL (NO RANGE EST.); Urine Sodium 55 mmol/L (Not Establ.)
[2021-07-24 02:22] LABS: Osmolality, Urine 153 mOsm/KG
[2021-07-24 05:25] LABS: Absolute Lymphocyte Count 0.91 X10^3/uL (0.83-4.51); Absolute Neutrophil Count 5.1 X10^3/uL (2.0-7.7); Basophil# 0.03 X10^3/uL; Basophil% 0.4 % (0-1); Eosinophil# 0.07 X10^3/uL; Hemoglobin 12.9 g/dL (12.0-15.0); Lymphocyte # 0.91 X10^3/ul (0.83-4.51); Lymphocyte % 12.6 % (19-41); Mean Corp Hgb Conc 34.9 g/dL (32-36); Mean Corpuscular Hgb 33.5 pg (27.0-32.0); Mean Corpuscular Volume 96.1 fL (81-99); Mean Platelet Vol. 9.5 fl (6.2-12.0); Monocyte# 1.05 X10^3/uL; Monocyte% 14.5 % (0-10); NRBC Flagged by Analyzer 0 % (0-5); Neutrophil # 5.14 X10^3/uL (2.7-7.7); Neutrophil % 71.1 % (47-70); Platelet Count 296 K/mm3 (150-450); RBC Distribution Width CV 11.6 % (11.6-14.6); Red Blood Count 3.85 M/mm3 (4.2-5.4); White Blood Count 7.2 K/mm3 (4.4-11.0)
[2021-07-24 06:03] LABS: ALB/GLOB Ratio 1.3 RATIO (0.9-2.4); AST(SGOT) 16 U/L (15-37); Alanine Aminotransfer ALT/SGPT 17 U/L (13-56); Albumin, Serum 3.8 g/dL (3.2-5.0); Alkaline Phosphatase 97 U/L (45-117); Anion Gap 8 (5-15); BUN 9 mg/dL (7-18); BUN/Creat Ratio 20.1 RATIO (10-20); Calcium,Total 8.4 mg/dL (8.5-10.1); Chloride 103 mmol/L (98-107); Creatinine, Serum 0.45 mg/dL (0.55-1.02); EST Glomerular Filtration Rate 145 mL/min (>60); Est Glom Filt Rate - Afr Amer 176 mL/min (>60); Glucose 93 mg/dL (74-106); Potassium 3.5 mmol/L (3.5-5.1); Protein, Total 6.8 g/dL (6.4-8.2); Sodium Level 132 mmol/L (136-145); T4 Free Direct 1.05 ng/dL (0.76-1.46); Thyroid Stim Hormone (TSH) 0.62 uIU/mL (0.358-3.74)
[2021-07-24] MEDS: amLODIPine 10 MG Tablet PO (08:51)
[2021-07-24] MEDS: Lisinopril 20 MG Tablet PO (08:51)
[2021-07-24] MEDS: Enoxaparin 40 MG/0.4 ML Syringe SC (08:51)
--- NOTE | 2021-07-24 11:46 | CON.PCM.RE_ITS ---
Assessment & Plan Assessment/Plan (1) Hyponatremia: (2) Hypokalemia: (3) Hypertension: PLAN: Patient presented to the emergency room last evening after contacted by her PCP, found to have hypokalemia and hyponatremia. Sodium was 122 in patient's PCP office, upon presentation to the emergency room sodium 124, she wa s given NS IV fluids and today her sodium is up to 132. Patient is not on any diuretics. She is not on any SSRIs. Patient endorses drinking greater than 2 L of fluid daily. Recommended to patient to increase solute intake and limit total fluid intake to around 1.5 L/day. She does not need any salt tablets, tolvaptan or 3% saline. Patient is asymptomatic from hyponatremia, currently euvolemic. TSH normal, cortisol normal, urine sodium 55 and urine osmolality 153. Potassium was 2.9 and with supplement potassium improved to 3.5. Reviewed with patient and foods higher in potassium that she can eat. Also again reviewed importance of increasing solute intake and limiting fluids/tea. Patient possibly to be discharged to home today, ok for discharge per renal standpoint. She can follow up with PCP or can arrange for follow up in our [place] office. HPI Consult Data Date of Consult: 07/24/21 HPI Narrative HPI Narrative: RICARDO VARGAS, is a 76 F with past medical history significant for hypertension who was just recently seen by PCP and had lab work drawn for the appointment on July 23, she was contacted at home as she was found to have potassium of 2.9 and sodium of 122. Patient and her were encouraged to go the emergency room for further evaluation and treatment. Patient did go to the emergency room last evening, her sodium was 124 and potassium 2.9. Patient was given potassium supplementation, potassium improved to 3.5. She was also started on IV fluids and sodium this morning is 132. We were consulted for hyponatremia. Patient denies any recent nausea or vomiting. States has not been outside in the heat. Patient does endorse that she drinks at least 8 cups of iced tea daily along with water and juices. Denies any recent headaches. Denies any recent falls. Denies any cramping. Patient's is at bedside and states patient has a small appetite. Patient states she is not on any di uretics. Her only medications are lisinopril and amlodipine. In reviewing past labs on April 09, 2021 sodium was 132, before then sodium was normal at 136. Baseline potassium is normal however patient does have a few episodes of low potassium levels around 3.2-3.4mmol/L dating back to 2013. [facility] Medical History (Updated 07/24/21 @ 01:[address] Xochitl Pennington MD) GI bleed Hypertension Medical History no medical history Home Medications amlodipine 10 mg PO DAILY 07/23/21 [History Last Taken Unknown] lisinopril 20 mg PO DAILY 07/23/21 [History Last Taken Unknown] Allergy/AdvReac Type Severity Reaction Status Date / Time rivaroxaban [From Xarelto] AdvReac BLOOD IN Verified 07/23/21 21:06 STOOL Family History no significant family his Surgical History (Updated 07/23/21 @ 21:[address] Otto Medellin, DO) History of total replacement of both hip joints Social History (Updated 07/24/21 @ 01:[address] Xochitl Pennington MD) household members: other details: She notes that her son currently lives with her. Smoking Status: Never smoker alcohol intake: current alcohol intake frequency: a few times a month Alcohol type: wine substance use type: does not use ROS ROS Narrative As in HPI and past medical history Physical Exam Narrative Const: Alert and oriented x3 HEENT: Head is normocephalic, atraumatic, mucous membranes moist Respiratory: Lung sounds clear anteriorly and posteriorly Cardio: S1-S2, RRR GI: Abdomen soft, nontender, positive bowel sounds in 4 quadrants Extremities: No edema Lab / Micro Data Result Diagrams: 07/24/21 05:09 07/24/21 05:09 Labs: Laboratory Results - last 24 hr 07/23/21 22:00: WBC 9.0, RBC 3.82 L, Hgb 12.7, Hct 35.8 L, MCV 93.7, MCH 33.2 H, MCHC 35.5, RDW Std Deviation 39.6, RDW Coeff of Mae 11.5 L, Plt Count 288, MPV 9.1, Immature Gran % (Auto) 0.400, Neut % (Auto) 63.6, Lymph % (Auto) 19.2, [place] % (Auto) 14.7 H, Eos % (Auto) 1.8, Baso % (Auto) 0.3, Absolute Neuts (auto) 5.7, Absolute Lymphs (auto) 1.72, Nucleated RBC % 0 07/23/21 22:00: Sodium 124 L, Potassium 2.9 L, Chloride 90 L, Carbon Dioxide 21.0, Anion Gap 13, BUN 14, Creatinine 0.64, Estim Creat Clear Calc 38.29, Est GFR (MDRD) Af Amer 117, Est GFR (MDRD) Non-Af 97, BUN/Creatinine Ratio 22.0 H, Glucose 93, Calcium 8.8 07/23/21 22:00: Magnesium 1.8 07/23/21 22:00: Total Bilirubin 0.80, Direct Bilirubin 0.19, AST 21, ALT 16, Alkaline Phosphatase 102, Total Protein 7.2, Albumin 4.2, Globulin 3.0 07/23/21 22:20: Urine Color Yellow, Urine Clarity Clear, Urine pH 6.5, Ur Specific [place] 1.010, Urine Protein Negative, Urine Glucose (UA) Normal, Urine Ketones Negative, Urine Occult Blood Negative, Urine Nitrite Negative, Urine Bilirubin Negative, Urine Urobilinogen Normal, Ur Leukocyte Esterase Negative, Urine RBC 0 SEEN, Urine WBC 0 SEEN, Ur Squamous Epith Cells 0 SEEN, Urine Bacteria 0 SEEN, Urine Mucus 0 SEEN 07/24/21 01:45: Urine Osmolality 153, Ur Random Sodium 55, Urine Creatinine < 13.00 07/24/21 05:09: WBC 7.2, RBC 3.85 L, Hgb 12.9, Hct 37.0, MCV 96.1, MCH 33.5 H, MCHC 34.9, RDW Std Deviation 41.0, RDW Coeff of Mae 11.6, Plt Count 296, MPV 9.5, Immature Gran % (Auto) 0.400, Neut % (Auto) 71.1 H, Lymph % (Auto) 12.6 L, [place] % (Auto) 14.5 H, Eos % (Auto) 1.0, Baso % (Auto) 0.4, Absolute Neuts (auto) 5.1, Absolute Lymphs (auto) 0.91, Nucleated RBC % 0 07/24/21 05:09: Sodium 132 L, Potassium 3.5, Chloride 103, Carbon Dioxide 21.0, Anion Gap 8, BUN 9, Creatinine 0.45 L, Estim Creat Clear Calc 39.90, Est GFR (MDRD) Af Amer 176, Est GFR (MDRD) Non-Af 145, BUN/Creatinine Ratio 20.1 H, G lucose 93, Calcium 8.4 L, Total Bilirubin 0.60, AST 16, ALT 17, Alkaline Phos phatase 97, Total Protein 6.8, Albumin 3.8, Globulin 3.0, Albumin/Globulin Ratio 1.3, TSH 0.62, Free T4 1.05 07/24/21 05:09: Cortisol 15.40
--- NOTE | 2021-07-24 11:47 | PCM.DC ---
Discharge Instructions Diet Discharge Diet: No restrictions and - (1500 CC fluids restriction) Activity Discharge Activity: Return to Normal Activity Dressing / Incision Call your doctor if you observe: Shortness of breath, Dizziness and Chest pain Follow Up Care Test Results: Test results from this visit will be discussed in further detail at your follow-up appointment, if applicable. Discharge Plan Admission Admit Date/Time: 07/23/21 23:53 Primary Reason for Your Visit: Low sodium Attending Provider: Benjamin Saucedo Primary Care Provider: Az Bernardo Consulting Providers: Xochitl Pennington ; Jonathan Bacon Instructions Additional Instructions / Restrictions: Recommend repeat BMP in 1 week by primary care provider. Discharge Orders/Prescriptions Prescriptions: Continued lisinopril 20 mg tablet 20 mg PO DAILY RF: 0 amlodipine 10 mg tablet 10 mg PO DAILY RF: 0 Referrals / Follow Up: Az Bernardo MD [Primary Care Provider] - In 1 Week Ju Gonzalez MD [STAFF PHYSICIAN] - Within 1 Month Disposition Disposition (needs filled in before D/C Order can be placed): Home, Self Care
--- NOTE | 2021-07-24 11:51 | DS.PCM_ITS ---
Documented by User: Leatha Logan NP, VOCATIONAL REHABILITATION CONSULTANT-C 07/24/21 11:57 Providers Date of Admission: 07/23/21 Date of Discharge: 07/24/21 Primary Care Physician: Dr. Az Bernardo MD Consultations 07/24/21 08:59 Consult: Nephrology Routine Consulting Provider: Jonathan Bacon Reason for Consult: Hyponatremia, SIADH? EMERGENT Consult: No MD Notified: Yes Date Notified: 07/24/21 Time Notified: 09:24 Method of Notification: Answering Service Reason For Visit: HYPONATREMIA / HYPOKALEMIA Diagnosis Discharge Diagnosis (1) Hyponatremia: Status: Acute Code(s): E87.1 - Hypo-osmolality and hyponatremia (2) Hypokalemia: Status: Acute Code(s): E87.6 - Hypokalemia Medications at Discharge Home Medications amlodipine 10 mg PO DAILY 07/23/21 lisinopril 20 mg PO DAILY 07/23/21 Hospital Course Operations None Procedures None Summary of Care Provided Hospital Course: Patient is a 76-year-old female admitted 07/23/21 due to hyponatremia. 1. Acute on chronic hyponatremia-suspect multifactorial due to poor food intake, significant fluid intake as well as SIADH component. TSH, cortisol normal. Urine osmolality and urine sodium increased. Patient states she drinks a significant amount of tea throughout the day. She states she does not eat much food. 1500 cc fluid restriction. Recommended increase protein and food intake. Repeat BMP in 1 week. Nephrology consulted during admission, follow-up with PCP and nephrology at discharge. 2. Hypokalemia-replace per protocol. Repeat BMP within 1 week by primary care provider. Mag normal. 3. Hypertension-continue lisinopril, amlodipine. Patient seen and examined prior to discharge. Physical assessment as noted below. Patient is stable for discharge with follow up recommendations as noted above. This patient was seen by ASHLY Nolasco under the supervision of Dr. Saucedo. Physical Exam Const alert and oriented x3 Orientation / Consciousness: awake, oriented to person, oriented to place and oriented to time Nutritional Appearance: cachectic HEENT normocephalic and moist oral mucous membranes Eyes PERRL, EOMs intact bilaterally and conjunctivae normal Neck no lymphadenopathy Resp normal respiratory effort and clear to auscultation bilaterally Cardio regular rate, regular rhythm and no murmurs Peripheral Pulses: pulses 2+ throughout GI normal to inspection, nondistended, normoactive bowel sounds, non-tender and non-distended Extremity normal to inspection Skin no rashes or lesions noted Lesions: no lesions Rashes: no rashes Trauma: no lacerations or abrasions Neuro CN's II-XII intact bilaterally, no focal motor deficits, no sensory deficits noted and deep tendon reflexes 2+ bilaterally Psych mental status grossly normal and affect normal Weight / BMI Weight Weight: 114 lb 10.246 oz Body Mass Index (BMI) 18.5 ABG / Lab / Microbiology Data Result Diagrams: 07/24/21 05:09 07/24/21 05:09 Laboratory: Laboratory Results - last 24 hr 07/23/21 22:00: WBC 9.0, RBC 3.82 L, Hgb 12.7, Hct 35.8 L, MCV 93.7, MCH 33.2 H, MCHC 35.5, RDW Std Deviation 39.6, RDW Coeff of Mae 11.5 L, Plt Count 288, MPV 9.1, Immature Gran % (Auto) 0.400, Neut % (Auto) 63.6, Lymph % (Auto) 19.2, [place] % (Auto) 14.7 H, Eos % (Auto) 1.8, Baso % (Auto) 0.3, Absolute Neuts (auto) 5.7, Absolute Lymphs (auto) 1.72, Nucleated RBC % 0 07/23/21 22:00: Sodium 124 L, Potassium 2.9 L, Chloride 90 L, Carbon Dioxide 21.0, Anion Gap 13, BUN 14, Creatinine 0.64, Estim Creat Clear Calc 38.29, Est GFR (MDRD) Af Amer 117, Est GFR (MDRD) Non-Af 97, BUN/Creatinine Ratio 22.0 H, Glucose 93, Calcium 8.8 07/23/21 22:00: Magnesium 1.8 07/23/21 22:00: Total Bilirubin 0.80, Direct Bilirubin 0.19, AST 21, ALT 16, Alkaline Phosphatase 102, Total Protein 7.2, Albumin 4.2, Globulin 3.0 07/23/21 22:20: Urine Color Yellow, Urine Clarity Clear, Urine pH 6.5, Ur Specific [place] 1.010, Urine Protein Negative, Urine Glucose (UA) Normal, Urine Ketones Negative, Urine Occult Blood Negative, Urine Nitrite Negative, Urine Bilirubin Negative, Urine Urobilinogen Normal, Ur Leukocyte Esterase Negative, Urine RBC 0 SEEN, Urine WBC 0 SEEN, Ur Squamous Epith Cells 0 SEEN, Urine Bacteria 0 SEEN, Urine Mucus 0 SEEN 07/24/21 01:45: Urine Osmolality 153, Ur Random Sodium 55, Urine Creatinine < 13.00 07/24/21 05:09: WBC 7.2, RBC 3.85 L, Hgb 12.9, Hct 37.0, MCV 96.1, MCH 33.5 H, MCHC 34.9, RDW Std Deviation 41.0, RDW Coeff of Mae 11.6, Plt Count 296, MPV 9.5, Immature Gran % (Auto) 0.400, Neut % (Auto) 71.1 H, Lymph % (Auto) 12.6 L, [place] % (Auto) 14.5 H, Eos % (Auto) 1.0, Baso % (Auto) 0.4, Absolute Neuts (auto) 5.1, Absolute Lymphs (auto) 0.91, Nucleated RBC % 0 07/24/21 05:09: Sodium 132 L, Potassium 3.5, Chloride 103, Carbon Dioxide 21.0, Anion Gap 8, BUN 9, Creatinine 0.45 L, Estim Creat Clear Calc 39.90, Est GFR (MDRD) Af Amer 176, Est GFR (MDRD) Non-Af 145, BUN/Creatinine Ratio 20.1 H, Glucose 93, Calcium 8.4 L, Total Bilirubin 0.60, AST 16, ALT 17, Alkaline Phosphatase 97, Total Protein 6.8, Albumin 3.8, Globulin 3.0, Albumin/Globulin Ratio 1.3, TSH 0.62, Free T4 1.05 07/24/21 05:09: Cortisol 15.40 D/C Instructions Discharge Diet: No restrictions and - (1500 CC fluids restriction) Call your doctor if you observe: Shortness of breath, Dizziness and Chest pain Meaningful Use Info Meaningful Use Diagnoses (Choose all that apply): None applicable Discharge Plan Admission Admit Date/Time: 07/23/21 23:53 Primary Reason for Your Visit: Low sodium Attending Provider: Benjamin Saucedo Primary Care Provider: Az Bernardo Consulting Providers: Xochitl Pennington ; Jonathan Bacon Instructions Additional Instructions / Restrictions: Recommend repeat BMP in 1 week by primary care provider. Discharge Orders/Prescriptions Prescriptions: Continued lisinopril 20 mg tablet 20 mg PO DAILY RF: 0 amlodipine 10 mg tablet 10 mg PO DAILY RF: 0 Referrals / Follow Up: Az Bernardo MD [Primary Care Provider] - In 1 Week Ju Gonzalez MD [STAFF PHYSICIAN] - Within 1 Month Disposition Disposition (needs filled in before D/C Order can be placed): Home, Self Care Documented by User: Dr. Benjamin Saucedo MD 07/24/21 12:17 Providers Date of Admission: 07/23/21 Reason For Visit: HYPONATREMIA / HYPOKALEMIA Medications at Discharge Home Medications amlodipine 10 mg PO DAILY 07/23/21 lisinopril 20 mg PO DAILY 07/23/21 Hospital Course Operations None Summary of Care Provided Minutes Spent on Discharge: 40 Hospital Course: This patient was seen in conjunction with JOSIE Nolasoc . I have independently interviewed and examined the patient and reviewed pertinent historical, laboratory, and other data. Please refer to ASHLY Nolasco note for details of this patient's presentation, findings, and recommendations. I have reviewed ASHLY Nolasco note and concur with documented findings. In brief, patient is a 76-year-old lady admitted with abnormal labs. Patient was found to be hyponatremic on admission admitted to a monitored bed for subsequent inpatient management Physical Examination: GENERAL: cooperative HEENT: Atraumatic; EYES; Anicteric, Normal Conjunctiva NECK; supple, normal thyroid, RESPIRATORY: Diminished to auscultation CARDIOVASCULAR: Regular S1 S2, GI: soft, normoactive bowel sounds, : No Renal angle tenderness; EXTREMITIES: No edema, no clubbing, MUSCULOSKELETAL: no muscle wasting NEURO: Awake; no lateralizing signs. SKIN: No Rash PSYCH; Flat affect Assessment: 1. Hyponatremia 2. Hypokalemia 3. Essential hypertension 4. DVT prophylaxis Hospital course; as documented above Total time spent by myself and the advanced practice practitioner evaluating patient, reviewing labs, subsequent management decisions, discussion with patient as well as other providers 40 minutes ( 25 of which was spent by myself) ABG / Lab / Microbiology Data Result Diagrams: 07/24/21 05:09 07/24/21 05:09 Discharge Plan Admission Admit Date/Time: 07/23/21 23:53 Primary Reason for Your Visit: Low sodium Attending Provider: Benjamin Saucedo Primary Care Provider: Az Bernardo Consulting Providers: Xochitl Pennington ; Jonathan Bacon Instructions Additional Instructions / Restrictions: Recommend repeat BMP in 1 week by primary care provider. Discharge Orders/Prescriptions Prescriptions: Continued lisinopril 20 mg tablet 20 mg PO DAILY RF: 0 amlodipine 10 mg tablet 10 mg PO DAILY RF: 0 Referrals / Follow Up: Az Bernardo MD [Primary Care Provider] - In 1 Week Ju Gonzalez MD [STAFF PHYSICIAN] - Within 1 Month Disposition Disposition (needs filled in before D/C Order can be placed): Home, Self Care Hospital Course Consultations Consultations: Consultations 07/24/21 08:59 Consult: Nephrology Routine Consulting Provider: Jonathan Bacon Reason for Consult: Hyponatremia, SIADH? EMERGENT Consult: No MD Notified: Yes Date Notified: 07/24/21 Time Notified: 09:24 Method of Notification: Answering Service Operations None
--- NOTE | 2021-07-24 11:55 | CASEMGMT ---
STARR GUIDRY NOTE: Pt being discharged home. STARR GUIDRY spoke w/therapy, who has evaluated pt this AM and state feel pt is safe to return home. STARR GUIDRY to room to talk w/pt and , who is in room visiting. Pt sitting up in recliner chair. She states she feels good. Pt and deny having any discharge planning needs or concerns w/pt going home. Lang RICARDO RN, CM
[2021-07-24] MEDS: Potassium Chloride Oral Tablet 20 MEQ PO (12:07)
== END 2021-07-24 11:48 | disposition home or self-care (01) ==
LOC: ED 23:58 → PCU 07-24 00:16
PROVIDERS: Admitting Provider Family Medicine; Emergency Provider Emergency Medicine; PCP Family Medicine; Visit Provider Internal Medicine
DX: E87.1 Hypo-osmolality and hyponatremia (principal); I10 Essential (primary) hypertension; Z79.899 Other long term (current) drug therapy; E87.6 Hypokalemia; E78.5 Hyperlipidemia, unspecified
CPT/HCPCS: 80048; 80053; 80061; 80076; 81001; 82533; 82570; 83735; 83935; 84300; 84439; 84443; 85025; 96361; 96365; 96372; 97162; 97166; 99218; 99284; J7030; A4216; G0378

== ENCOUNTER → 2021-07-23 | Outpatient (CLI) | payer MEDICARE, SELFPAY ==
[2021-07-23 15:51] LABS: Absolute Lymphocyte Count 1.38 X10^3/uL (0.83-4.51); Absolute Neutrophil Count 5.1 X10^3/uL (2.0-7.7); Basophil# 0.03 X10^3/uL; Basophil% 0.4 % (0-1); Eosinophil# 0.05 X10^3/uL; Eosinophils% 0.6 % (0-5); Hematocrit 38.3 % (37-47); Hemoglobin 13.2 g/dL (12.0-15.0); Lymphocyte # 1.38 X10^3/ul (0.83-4.51); Lymphocyte % 17.5 % (19-41); Mean Corp Hgb Conc 34.5 g/dL (32-36); Mean Corpuscular Hgb 33.4 pg (27.0-32.0); Mean Platelet Vol. 10.2 fl (6.2-12.0); Monocyte# 1.27 X10^3/uL; Monocyte% 16.1 % (0-10); NRBC Flagged by Analyzer 0 % (0-5); Neutrophil # 5.09 X10^3/uL (2.7-7.7); Neutrophil % 64.8 % (47-70); Platelet Count 317 K/mm3 (150-450); RBC Distribution Width CV 11.7 % (11.6-14.6); RBC Distribution Width SD 41.9 fl (35.1-43.9); Red Blood Count 3.95 M/mm3 (4.2-5.4); White Blood Count 7.9 K/mm3 (4.4-11.0)
[2021-07-23 16:14] LABS: ALB/GLOB Ratio 1.4 RATIO (0.9-2.4); AST(SGOT) 18 U/L (15-37); Alanine Aminotransfer ALT/SGPT 18 U/L (13-56); Albumin, Serum 4.2 g/dL (3.2-5.0); Alkaline Phosphatase 106 U/L (45-117); Anion Gap 12 (5-15); BUN 16 mg/dL (7-18); Calcium,Total 9.1 mg/dL (8.5-10.1); Chloride 88 mmol/L (98-107); Cholesterol 275 mg/dL (200); Creatinine, Serum 0.67 mg/dL (0.55-1.02); EST Glomerular Filtration Rate 92 mL/min (>60); Est Glom Filt Rate - Afr Amer 111 mL/min (>60); Globulin 3.1 g/dL (2.2-4.2); Glucose 106 mg/dL (74-106); High Density Lipoprotein 110 mg/dL; Potassium 2.9 mmol/L (3.5-5.1); Protein, Total 7.3 g/dL (6.4-8.2); Sodium Level 122 mmol/L (136-145); Triglycerides 71 mg/dL; Very Low Density Lipoprotein 14 mg/dL (5-40)
== END | disposition home or self-care (01) ==
LOC: MFPLAB 12:19
PROVIDERS: PCP Family Medicine; Visit Provider Family Medicine
DX: E78.5 Hyperlipidemia, unspecified (principal)
CPT/HCPCS: 80053; 80061; 85025

== ENCOUNTER → 2021-11-13 | Outpatient (CLI) | payer MEDICARE, SELFPAY ==
[2021-11-13 10:49] LABS: Bacteria 0 SEEN /hpf (None Seen); Mucous, Urine 0 SEEN /hpf (<or=2+); Red Blood Cells-Urine 0 SEEN /hpf (0-5)
[2021-11-13 12:20] LABS: Absolute Lymphocyte Count 1.04 X10^3/uL (0.83-4.51); Absolute Neutrophil Count 4.3 X10^3/uL (2.0-7.7); Basophil# 0.05 X10^3/uL; Basophil% 0.8 % (0-1); Eosinophil# 0.08 X10^3/uL; Eosinophils% 1.3 % (0-5); Hematocrit 41.1 % (37-47); Hemoglobin 13.8 g/dL (12.0-15.0); Lymphocyte # 1.04 X10^3/ul (0.83-4.51); Lymphocyte % 16.3 % (19-41); Mean Corp Hgb Conc 33.6 g/dL (32-36); Mean Corpuscular Hgb 33.1 pg (27.0-32.0); Mean Corpuscular Volume 98.6 fL (81-99); Mean Platelet Vol. 9.8 fl (6.2-12.0); Monocyte# 0.85 X10^3/uL; Monocyte% 13.3 % (0-10); NRBC Flagged by Analyzer 0 % (0-5); Neutrophil # 4.34 X10^3/uL (2.7-7.7); Platelet Count 352 K/mm3 (150-450); RBC Distribution Width CV 12.5 % (11.6-14.6); RBC Distribution Width SD 45.4 fl (35.1-43.9); Red Blood Count 4.17 M/mm3 (4.2-5.4); White Blood Count 6.4 K/mm3 (4.4-11.0)
[2021-11-13 12:30] LABS: Color, Urine Yellow (Yellow); Glucose, Dipstick Normal (Normal); Ketone-Dipstick 5 mg/dl (Negative); Leukocyte Esterase-Dipstick 100 /ul (Negative); Nitrite-Dipstick Negative (Negative); Occult Blood-Urine 10 /ul (Negative); Protein-Dipstick 30 mg/dl (Negative); Specific Gravity, Urine 1.015 (1.002-1.030); Urine Bilirubin Dipstick Negative (Negative); Urine Clarity Sl. Cloudy (Clear); Urine Urobilinogen 1 mg/dl (Normal); Urine pH 6.5 (5.0 - 8.0)
[2021-11-13 12:45] LABS: AST(SGOT) 18 U/L (15-37); Alanine Aminotransfer ALT/SGPT 16 U/L (13-56); Alkaline Phosphatase 109 U/L (45-117); Anion Gap 11 (5-15); BUN 12 mg/dL (7-18); Calcium,Total 9.3 mg/dL (8.5-10.1); Chloride 99 mmol/L (98-107); Cholesterol 223 mg/dL (200); Creatinine, Serum 0.75 mg/dL (0.55-1.02); EST Glomerular Filtration Rate 80 mL/min (>60); Est Glom Filt Rate - Afr Amer 97 mL/min (>60); Glucose 124 mg/dL (74-106); High Density Lipoprotein 130 mg/dL; Sodium Level 137 mmol/L (136-145); Thyroid Stim Hormone (TSH) 0.63 uIU/mL (0.358-3.74); Triglycerides 36 mg/dL; Very Low Density Lipoprotein 7 mg/dL (5-40)
[2021-11-13 12:53] LABS: Calcium Oxalate Crystals Ur 1+ /hpf (<or=2+); Hyaline Cast 5-10 SEEN /lpf (0-5)
[2021-11-13 12:54] LABS: Squamous Epithelial Cells - UA 0-5 SEEN /hpf (5-10); Transitional Epithelial - Ur 0-5 SEEN /hpf (0-5)
[2021-11-13 12:55] LABS: White Blood Cells 0-5 SEEN /hpf (0-5)
[2021-11-17 17:17] LABS: Hemoglobin A1c 5.3 % (3.8-5.6)
== END | disposition home or self-care (01) ==
LOC: MFPLAB 10:46
PROVIDERS: PCP Family Medicine; Referring Provider Family Medicine; Visit Provider Family Medicine
DX: I10 Essential (primary) hypertension (principal); E78.5 Hyperlipidemia, unspecified
CPT/HCPCS: 36415; 80053; 80061; 81001; 83036; 84443; 85025

== ENCOUNTER → 2022-02-17 | Outpatient (CLI) | payer MEDICARE, SELFPAY ==
[2022-02-17 18:00] LABS: Absolute Lymphocyte Count 0.91 X10^3/uL (0.83-4.51); Absolute Neutrophil Count 5.6 X10^3/uL (2.0-7.7); Basophil# 0.06 X10^3/uL; Basophil% 0.8 % (0-1); Eosinophil# 0.06 X10^3/uL; Eosinophils% 0.8 % (0-5); Hematocrit 24.9 % (37-47); Hemoglobin 8.1 g/dL (12.0-15.0); Lymphocyte # 0.91 X10^3/ul (0.83-4.51); Lymphocyte % 12.4 % (19-41); Mean Corp Hgb Conc 32.5 g/dL (32-36); Mean Corpuscular Hgb 28.3 pg (27.0-32.0); Mean Corpuscular Volume 87.1 fL (81-99); Mean Platelet Vol. 8.8 fl (6.2-12.0); Monocyte# 0.67 X10^3/uL; Monocyte% 9.1 % (0-10); NRBC Flagged by Analyzer 0 % (0-5); Neutrophil # 5.61 X10^3/uL (2.7-7.7); Neutrophil % 76.6 % (47-70); Platelet Count 539 K/mm3 (150-450); RBC Distribution Width CV 15.7 % (11.6-14.6); RBC Distribution Width SD 50.2 fl (35.1-43.9); Red Blood Count 2.86 M/mm3 (4.2-5.4); White Blood Count 7.3 K/mm3 (4.4-11.0)
[2022-02-17 18:23] LABS: AST(SGOT) 16 U/L (15-37); Alanine Aminotransfer ALT/SGPT 12 U/L (13-56); Albumin, Serum 3.2 g/dL (3.2-5.0); Alkaline Phosphatase 81 U/L (45-117); Anion Gap 7 (5-15); BUN 10 mg/dL (7-18); BUN/Creat Ratio 13.3 RATIO (10-20); Calcium,Total 8.4 mg/dL (8.5-10.1); Chloride 96 mmol/L (98-107); Cholesterol 217 mg/dL (200); Creatinine, Serum 0.75 mg/dL (0.55-1.02); EST Glomerular Filtration Rate 80 mL/min (>60); Est Glom Filt Rate - Afr Amer 96 mL/min (>60); Globulin 3.2 g/dL (2.2-4.2); Glucose 96 mg/dL (74-106); High Density Lipoprotein 83 mg/dL; Potassium 3.8 mmol/L (3.5-5.1); Protein, Total 6.4 g/dL (6.4-8.2); Sodium Level 133 mmol/L (136-145); T4 Free Direct 0.92 ng/dL (0.76-1.46); Thyroid Stim Hormone (TSH) 0.62 uIU/mL (0.358-3.74); Triglycerides 52 mg/dL; Very Low Density Lipoprotein 10 mg/dL (5-40)
[2022-02-17 18:26] LABS: Vitamin B12 270 pg/mL (211-911)
== END | disposition home or self-care (01) ==
LOC: MFPLAB 14:31
PROVIDERS: PCP Family Medicine; Referring Provider Family Medicine; Visit Provider Family Medicine
DX: F03.90 Unspecified dementia, unspecified severity, without behavioral disturbance, psychotic disturbance, mood disturbance, and anxiety (principal); E78.5 Hyperlipidemia, unspecified; I10 Essential (primary) hypertension
CPT/HCPCS: 36415; 80053; 80061; 82607; 84439; 84443; 85025

== ENCOUNTER → 2022-03-16 | Outpatient (CLI) | payer MEDICARE, SELFPAY ==
[2022-03-16 17:56] LABS: Absolute Lymphocyte Count 0.94 X10^3/uL (0.83-4.51); Absolute Neutrophil Count 4.5 X10^3/uL (2.0-7.7); Basophil# 0.02 X10^3/uL; Basophil% 0.3 % (0-1); Eosinophil# 0.07 X10^3/uL; Eosinophils% 1.1 % (0-5); Hematocrit 24.3 % (37-47); Hemoglobin 7.6 g/dL (12.0-15.0); Lymphocyte # 0.94 X10^3/ul (0.83-4.51); Lymphocyte % 14.4 % (19-41); Mean Corp Hgb Conc 31.3 g/dL (32-36); Mean Corpuscular Volume 83.2 fL (81-99); Mean Platelet Vol. 9.3 fl (6.2-12.0); Monocyte% 15.3 % (0-10); NRBC Flagged by Analyzer 0 % (0-5); Neutrophil # 4.49 X10^3/uL (2.7-7.7); Neutrophil % 68.6 % (47-70); Platelet Count 426 K/mm3 (150-450); RBC Distribution Width CV 17.3 % (11.6-14.6); RBC Distribution Width SD 52.7 fl (35.1-43.9); Red Blood Count 2.92 M/mm3 (4.2-5.4); White Blood Count 6.5 K/mm3 (4.4-11.0)
[2022-03-16 18:56] LABS: Ferritin 14 ng/mL (8-252); Iron 18 ug/dL (50-170); Iron Binding Capacity,Total 309 ug/dL (250-450)
[2022-03-16 19:01] LABS: Vitamin B12 291 pg/mL (211-911)
== END | disposition home or self-care (01) ==
LOC: MFPLAB 15:09
PROVIDERS: PCP Family Medicine; Referring Provider Family Medicine; Visit Provider Family Medicine
DX: D64.9 Anemia, unspecified (principal)
CPT/HCPCS: 36415; 82607; 82728; 82746; 83540; 83550; 85025

== ENCOUNTER → 2022-03-16 | Outpatient (CLI) | payer MEDICARE, SELFPAY ==
--- NOTE | 2022-03-16 15:28 | CT_ITS ---
STUDY: CT BRAIN WITHOUT CONTRAST REASON FOR EXAM: Female, 77 years old. HEAD TRAUMA RADIATION DOSAGE (If Supplied By Facility): CTDIvol = ( 44.99 ) mGy, DLP = ( 745.49 ) mGycm TECHNIQUE: Transaxial CT imaging of the brain was performed without administration of intravenous contrast material. Individualized dose optimization techniques were used for this CT. COMPARISON: Comparison is made with prior study dated 04/13/2015. FINDINGS: Small scalp hematoma overlying the left posterior parietal occipital bone. Normal calvarium. There is mild cerebral atrophy with widening of the extra-axial spaces and ventricular dilatation. There are areas of decreased attenuation within the white matter tracts of the supratentorial brain, consistent with microvascular disease changes. Normal basal ganglia and thalami. Normal brainstem. There is mild cerebellar atrophy. There is no intracranial hemorrhage. There are no findings of an acute ischemic infarction. Normal visualized paranasal sinuses. CT/Brain/Head without Contrast IMPRESSION: Chronic involutional changes of the brain. Small scalp hematoma overlying the left posterior parietal occipital bone. Electronically Signed: Rene Epperson MD at 15:52 EST ,
== END | disposition home or self-care (01) ==
LOC: CT 15:27
PROVIDERS: PCP Family Medicine; Referring Provider Family Medicine; Visit Provider Family Medicine
DX: S09.90XA Unspecified injury of head, initial encounter (principal); D64.9 Anemia, unspecified
CPT/HCPCS: 36415; 70450; 82607; 82728; 82746; 83540; 83550; 85025

== ENCOUNTER 2022-04-03 10:02 | Emergency (ER) | payer MEDICARE, SELFPAY ==
[2022-04-03 10:04] VITALS: BP 137/67; PULSE 84; RESP 16; TEMP 36.1; O2SAT 100; BMI 18.6
--- NOTE | 2022-04-03 10:48 | EX.ED.DYSGE1 ---
HPI <ASHLY Ray - Last Filed: 04/03/22 11:43> History of Present Illness Chief Complaint: Lower Extremity Injury Narrative Narrative: 77-year-old female with history of high blood pressure, presents to the emergency department after mechanical fall that occurred roughly around 9 PM last evening. Patient states that she was going to the bathroom when she fell landing on her left side. She denies any head or neck injury. Patient states that she is able to bear weight however does have pain in the left hip, left femur. Secondary to bilateral hip replacements, she is concerned. She denies any other head or neck injury. Is not on any blood thinning medicine PFS <ASHLY Ray - Last Filed: 04/03/22 11:43> [facility] Medical History (Updated 04/03/22 @ 11:43 by ASHLY Ray) GI bleed Hypertension Hyponatremia Home Medications amlodipine 10 mg tablet 10 mg PO DAILY 07/23/21 [History Last Taken Unknown] lisinopril 20 mg tablet 20 mg PO DAILY 07/23/21 [History Last Taken Unknown] Allergy/AdvReac Type Severity Reaction Status Date / Time rivaroxaban [From Xarelto] AdvReac BLOOD IN Verified 04/03/22 10:03 STOOL Surgical History (Updated 07/23/21 @ 21:[address] Otto Medellin DO) History of total replacement of both hip joints Social History (Updated 07/24/21 @ 01:[address] Xochitl Pennington MD) household members: other details: She notes that her son currently lives with her. Smoking Status: Never smoker alcohol intake: current alcohol intake frequency: a few times a month Alcohol type: wine substance use type: does not use ROS <ASHLY Ray - Last Filed: 04/03/22 11:43> ROS ED ROS Narrative Constitutional: Negative for fever, chills, weight loss, weakness Eyes: Negative for vision loss, vision change, double vision ENT: Negative for any sore throat, ear pain, congestion Cardiovascular: Negative for any chest pain, tightness, palpitations Respiratory: Negative for any cough, sputum production, hemoptysis, dyspnea, dyspnea on exertion, orthopnea Gastrointestinal: Negative for any abdominal pain, nausea, vomiting, diarrhea, constipation, blood in stool, blood in vomit : Negative for any urinary frequency, dysuria, retention, blood in urine Muscle skeletal: Negative for any muscle joint pain, stiffness, myalgias, arthralgias, neck pain, back pain. Positive for left hip pain, left femur pain Neurological: Negative for any headache, syncope, numbness or tingling, dizziness Skin: Negative for any rashes, lumps, itching, abrasions, lacerations Psychiatric: Negative for any depression, anxiety, stress, suicidal ideation, homicidal ideation Hematologic: Negative for any easy bruising, excessive bruising, easy bleeding Allergies: Negative for any eczema, hives, rash EXAM <ASHLY Ray - Last Filed: 04/03/22 11:43> Physical Exam Narrative Exam Narrative: Vital signs reviewed. HEET: Head normocephalic atraumatic, TMs clear bilaterally. Posterior pharynx is clear, moist mucous membranes. Nares clear bilaterally. Neck: Supple with no lymphadenopathy or tenderness. No signs of meningismus, negative jolt sign. Cardiac: Regular rate and rhythm no murmurs gallops or rubs, equal peripheral pulses bilaterally. Respiratory: Lungs clear to auscultation bilaterally. No chest tenderness. Abdomen: Soft, nontender, nondistended. No abdominal bruit or pulsatile masses. No hepatosplenomegaly Extremities: No peripheral edema, no signs of gross trauma or deformity. Active full range of motion of all extremities. Patient has full flexion extension the left leg however with flexion it did cause some discomfort to the hip, left femur area. Physical examination was concerning with muscle skeletal strain rather than osseous abnormality. Neuro: Cranial nerves II through XII intact, no focal neurological deficits. Skin: Clean dry and intact with no rash, purpura, petechiae, vesicles or pustules. Backs/flank: No CVA tenderness, no midline spinal tenderness, no deformity. Psych: Normal mood and affect. No SI, HI or acute psychosis. Const Vital Signs: 04/03/22 10:04 Temperature 97.0 F L Temperature Source Temporal Pulse Rate 84 Respiratory Rate 16 Blood Pressure 137/67 H Blood Pressure Mean 90 Pulse Ox 100 Oxygen Delivery Method Room Air Positive well nourished and well developed General Appearance ED: well developed <Dr. Jimmie Dye MD - Last Filed: 04/03/22 11:49> Physical Exam Const Vital Signs: 04/03/22 10:04 Temperature 97.0 F L Temperature Source Temporal Pulse Rate 84 Respiratory Rate 16 Blood Pressure 137/67 H Blood Pressure Mean 90 Pulse Ox 100 Oxygen Delivery Method Room Air [facility] <ASHLY Ray - Last Filed: 04/03/22 11:43> [facility] Radiography Diagnostic Testing: Clinical Impression(s) from Imaging Studies Femur X-Ray 04/03/22 11:00 IMPRESSION: No acute fracture or dislocation. Status post right hip arthroplasty. Electronically Signed: Eduardo Moses MD at 11:36 EST Reading Location ID and State: [id number] / [employer] , Service support , Femur X-Ray 04/03/22 11:00 IMPRESSION: No acute fracture or dislocation. Status post left hip arthroplasty. Electronically Signed: Eduardo Moses MD at 11:40 EST Reading Location ID and State: [employer] / [employer] , Service support , Treatment and Re-Evaluation Narrative: All radiologic examinations were read, reviewed by the emergency department attending. From these reads, a plan of care will be put in place. Patient appears well, patient appears nontoxic, vital signs are stable. Patient presents to the emergency department with complaints of pain to her left hip, left femur following a fall that occurred around 9 PM last evening. Patient's x-rays of the left hip, left femur were grossly unremarkable for any osseous abnormality. Hip prosthesis appears in place. Patient's is in the room, he was made aware of the results, they were both given discharge instructions. Patient will be ambulated around the department, patient ambulated well. Patient will follow-up closely with her PCP, she would need to ice, elevate, use Tylenol for home. Patient is agreeable with the plan. Patient given return precautions. <Dr. Jimmie Dye MD - Last Filed: 04/03/22 11:49> [facility] Narrative Medical decision making narrative: I have personally performed a face to face assessment of the patient and have reviewed the MEAGAN Note. I performed a substantive portion of the visit including all aspects of the following. My jackson findings include: History is [77-year-old female fell at home today injuring her left hip and thigh region. Denies any other complaints. Did not feel ill prior to the fall.] Exam is [77-year-old female. Vital signs stable afebrile. H EENT exam unremarkable atraumatic. Neck nontender. Lungs clear. Heart regular rhythm no murmur. Chest wall nontender. Abdomen soft nontender. Pelvic girdle intact. Mild tenderness along the hip more on the proximal anterior thigh. No deformity. Flexion extension of both hips, knees ankles and feet were intact. No deformity. Back and spine nontender. Neurologically she is awake and alert. Exam is benign. No bruising at this time to the thigh.] Medical Decision Making [77-year-old fell x-rays being obtained. Clinically I do not think it is fractures and there is no signs of dislocation. Adjunct English Instructor x-rays are read as negative both by myself and the radiologist.] Other additions or changes: [Discharged to home. Ice and Tylenol. Radiography Diagnostic Testing: Clinical Impression(s) from Imaging Studies Femur X-Ray 04/03/22 11:00 IMPRESSION: No acute fracture or dislocation. Status post right hip arthroplasty. Electronically Signed: Eduardo Moses MD at 11:36 EST Reading Location ID and State: [id number] / [employer] , Service support , Femur X-Ray 04/03/22 11:00 IMPRESSION: No acute fracture or dislocation. Status post left hip arthroplasty. Electronically Signed: Eduardo Moses MD at 11:40 EST , Left femur x-ray read by myself and the radiologist shows no acute abnormality. Multiple views. Right femur x-ray interpreted by myself and the radiologist multiple views shows no acute fracture or dislocation. Patient has bilateral hip prostheses. Pelvis x-ray 1 view interpreted both myself and the radiologist shows no acute fracture or dislocation. Bilateral prostheses. Discharge Plan Triage Chief Complaint: Lower Extremity Injury ED Midlevel Provider: Reji Cárdenas ED Provider: Jimmie Dye Dx/Rx/DC Orders Clinical Impression: Contusion, Hip pain, Fall Instructions: Bruises (Contusions), ED Hip Contusion Prescriptions: No Action lisinopril 20 mg tablet 20 mg PO DAILY amlodipine 10 mg tablet 10 mg PO DAILY Label Comments: Take 1 tablet by mouth daily Primary Care Provider: Az Bernardo Referrals: Az Bernardo MD [Primary Care Provider] - Activity Restrictions/Additional Instructions: Please ice, use Tylenol as needed. Disposition Disposition: Home, Self Care
--- NOTE | 2022-04-03 11:00 | RAD_ITS ---
STUDY: X-RAY - RIGHT FEMUR REASON FOR STUDY: Female, 77 years old. fall, thigh pain TECHNIQUE: 2 view(s) of the femur. COMPARISON: 08/21/2016 FINDINGS: Status post right hip arthroplasty. The prosthesis appears located. No ostial lysis to suggest loosening. Normal visualized soft tissue structure. RAD/Femur Min 2 Views IMPRESSION: No acute fracture or dislocation. Status post right hip arthroplasty. Electronically Signed: Eduardo Moses MD at 11:36 EST ,
--- NOTE | 2022-04-03 11:00 | RAD_ITS ---
STUDY: X-RAY - PELVIS REASON FOR EXAM: Female, 77 years old. fall, pelvic pain, hip pain TECHNIQUE: One view of the pelvis was obtained. COMPARISON: 08/21/2016 FINDINGS: There is a non-specific bowel gas pattern. Normal visualized soft tissue structures. Normal bilateral iliac wings, sacroiliac joints and visualized sacrum. Normal visualized bilateral superior and inferior pubic rami. Normal pubic symphysis. Normal ischial tuberosities. Status post bilateral hip arthroplasty. The prosthesis. Located. No ostial lysis to suggest loosening. . RAD/Pelvis 1 or 2 Views IMPRESSION: No acute fracture or dislocation. Electronically Signed: Eduardo Moses MD at 11:46 EST ,
--- NOTE | 2022-04-03 11:00 | RAD_ITS ---
STUDY: X-RAY - LEFT FEMUR REASON FOR STUDY: Female, 77 years old. FELL TECHNIQUE: 2 view(s) of the femur. COMPARISON: 08/21/2016 FINDINGS: Status post left hip arthroplasty. The prosthesis appears located. No osteolysis to suggest loosening. Normal visualized soft tissue structure. RAD/Femur Min 2 Views IMPRESSION: No acute fracture or dislocation. Status post left hip arthroplasty. Electronically Signed: Eduardo Moses MD at 11:40 EST ,
[2022-04-03 11:52] VITALS: RESP 18
== END 2022-04-03 11:54 | disposition home or self-care (01) ==
PROVIDERS: Emergency Provider Emergency Medicine; PCP Family Medicine; Visit Provider Emergency Medicine
DX: S70.00XA Contusion of unspecified hip, initial encounter (principal); I10 Essential (primary) hypertension; M25.559 Pain in unspecified hip; Z96.643 Presence of artificial hip joint, bilateral; W19.XXXA Unspecified fall, initial encounter
CPT/HCPCS: 72170; 73552; 99282

== ENCOUNTER 2022-04-19 19:05 | Emergency (ER) | payer MEDICARE, SELFPAY ==
[2022-04-19 19:08] VITALS: BP 155/73; PULSE 106; RESP 15; TEMP 37.9; O2SAT 100
[2022-04-19 20:21] VITALS: BP 102/74; PULSE 89; RESP 15; TEMP 37.1; O2SAT 99; BMI 17.4
--- NOTE | 2022-04-19 20:30 | EKG12_ITS ---
Test Reason : DYSRHYTHMIA Blood Pressure : / mmHG Vent. Rate : 109 BPM Atrial Rate : 109 BPM P-R Int : 192 ms QRS Dur : 082 ms QT Int : 342 ms P-R-T Axes : 073 080 053 degrees QTc Int : 460 ms Sinus tachycardia Nonspecific ST abnormality Abnormal ECG Confirmed by DILEEP GREENWOOD, TARAS ([id number]), writer editor PANDA TURNER ([id number]) on 04/21/2022 10:26:59 AM Referred By: ANGIE Confirmed By:TARAS FALK MD
--- NOTE | 2022-04-19 20:32 | EX.ED.DYSGE1 ---
HPI History of Present Illness Chief Complaint: Fever Informant: patient and family Narrative Narrative: Brought here by most information from son and [id number] due to dementia history. Reported increased urine frequency 5 days ago having chills 3 days ago today had a fever 100 and went to urgent care was 101. Reported urine test was positive. They noted redness of the right wrist however patient denies any pain in the area. Denies any COVID infections in the past. Vaccinated for COVID. No sick contacts. Her currently recovering in TCU from spinal surgery. She had a fall few weeks ago injuring to her hip had x-rays outpatient negative she is using a walker at baseline. Occasional cough. No vomiting or diarrhea. [facility] Medical History GI bleed Hypertension Hyponatremia Home Medications amlodipine 10 mg tablet 10 mg PO DAILY 07/23/21 [History Last Taken Unknown] lisinopril 20 mg tablet 20 mg PO DAILY 07/23/21 [History Last Taken Unknown] cephalexin 500 mg capsule 500 mg PO Q6 #20 CAPSULES 04/19/22 [Rx Last Taken Unknown] Allergy/AdvReac Type Severity Reaction Status Date / Time rivaroxaban [From Xarelto] AdvReac BLOOD IN Verified 04/19/22 19:10 STOOL Surgical History History of total replacement of both hip joints Social History household members: other details: She notes that her son currently lives with her. Smoking Status: Never smoker alcohol intake: current alcohol intake frequency: a few times a month Alcohol type: wine substance use type: does not use ROS ROS ED Constitutional Constitutional ED: Reports chills and fever(s); Denies sweats Eyes Eyes: Denies change in vision ENT ENT ED: Denies dysphagia or sore throat Cardiovascular Cardiovascular: Denies chest pain, leg edema, palpitations or racing heartbeat Respiratory/Chest Respiratory/Chest: Reports cough; Denies dyspnea or dyspnea on exertion Gastrointestinal Gastrointestinal: Denies abdominal pain, diarrhea, nausea or vomiting Genitourinary Genitourinary ED: Reports urinary frequency; Denies dysuria or hematuria Musculoskeletal Musculoskeletal: Denies back pain, extremity pain or neck pain Integumentary Reports rash; Denies wounds Neurologic Neurologic: Denies headache(s), paresthesias or weakness EXAM Physical Exam Const Vital Signs: 04/19/22 19:08 04/19/22 20:21 04/19/22 20:35 Temperature 100.3 F H 98.8 F Temperature Source Temporal Temporal Pulse Rate 106 H 89 Respiratory Rate 15 15 Respiratory Effort Normal Respiratory Pattern Normal Blood Pressure 155/73 H 102/74 Blood Pressure Mean 100 83 Pulse Ox 100 99 Oxygen Delivery Method Room Air Room Air 04/19/22 21:11 04/19/22 21:13 04/19/22 23:51 Temperature 100.2 F H Temperature Source Oral Pulse Rate 95 Respiratory Rate 17 Respiratory Effort Respiratory Pattern Blood Pressure 104/74 Blood Pressure Mean 84 Pulse Ox 99 99 Oxygen Delivery Method Room Air Room Air Room Air Positive well nourished and well developed General Appearance ED: well developed and NAD HEENT Reports moist mucous membranes normocephalic and atraumatic Eyes PERRL, EOMs intact bilaterally and conjunctivae normal General Eye ED: Yes normal appearance of both eyes Neck no lymphadenopathy and supple General: Negative for tenderness Chest Wall Chest: Negative for tenderness Resp normal respiratory effort and normal air movement Effort and Inspection: symmetric chest movement; Negative for respiratory distress Cardio regular rate, regular rhythm and no murmurs Peripheral Pulses: pulses 2+ throughout GI normal to inspection, nondistended, normoactive bowel sounds and non-tender Palpation: Negative for guarding or rebound tenderness present Back/Spine no CVA tenderness and no thoracic nor lumbar tenderness Extremity Extremity Narrative: Right upper extremity: There is erythema on the dorsal aspect of the wrist over the hand. No pain with short arc movement, skin intact. This was warm to palpation. General Extremety ED: Negative for edema or tenderness General Extremity: Negative for edema Neuro no sensory deficits noted Neuro Narrative: Alert and oriented person reported currently at urgent care did not know the year. Sensorium / Orientation: awake and alert Skin no rashes or lesions noted and no wounds MDM MDM MDM Narrative Medical decision making narrative: Interventions / MDM: Differential diagnosis: UTI, COVID, influenza, viral syndrome, cellulitis of wrist Diagnosis considered but do not suspect: Septic wrist, however no pain with movement. My EKG interpretation: Sinus rate of 109, no ST changes, QTc 460. Imaging independently reviewed and interpreted by myself: 2 view chest x-ray: No acute process, right wrist 3 views mild distal arthritis radial aspect of the wrist bones. No fracture or dislocation. External documents reviewed: N/A Test considered but not ordered:N/A ED course: Patient is febrile tachycardic sepsis labs are heard. White count returned at 12 lactic acid 0.8. Hemoglobin 7.5 this was similar to her last 2 labs. Denies any rectal bleeding.. Creatinine 0.69. Potassium 3.3 orally she was given Tylenol for fever for 3. Return negative for infection flu and COVID-negative. She was given fluids. Re-evaluation: 2199: Clinically much more improved feeling better. Right wrist x-ray pending. Discussed viral syndrome at this time with cellulitis. She has wrist movement without pain therefore low clinical suspicion for septic joint. Patient started on Keflex after x-ray for cellulitis. Erythema was outlined, discussed and reevaluated erythema actually was improving compared to initial evaluation. Return precaution discussed with children. All questions were answered. Disposition discussed with patient/family/significant other: Family Case discussed with consulting clinician: N/A Lab Data Attestation: I reviewed the patient's lab results. Labs: Laboratory Results - last 24 hr 04/19/22 04/19/22 04/19/22 21:05 21:05 21:05 WBC 12.0 H RBC 3.19 L Hgb 7.5 L Hct 24.8 L MCV 77.7 L MCH 23.5 L MCHC 30.2 L RDW Std Deviation 52.5 H RDW Coeff of Mae 18.5 H Plt Count 585 H MPV 9.4 Immature Gran % (Auto) 0.500 Neut % (Auto) 76.9 H Lymph % (Auto) 11.7 L [place] % (Auto) 10.3 H Eos % (Auto) 0.3 Baso % (Auto) 0.3 Absolute Neuts (auto) 9.2 H Absolute Lymphs (auto) 1.40 Nucleated RBC % 0 PT 14.0 INR 1.1 APTT 29.8 Sodium 136 Potassium 3.3 L Chloride 101 Carbon Dioxide 26.0 Anion Gap 9 BUN 27 H Creatinine 0.69 Estim Creat Clear Calc 37.02 Est GFR (MDRD) Af Amer 107 Est GFR (MDRD) Non-Af 88 BUN/Creatinine Ratio 39.2 H Glucose 112 H Lactic Acid Calcium 9.1 Total Bilirubin 0.50 AST 17 ALT 8 L Alkaline Phosphatase 134 H Total Protein 7.5 Albumin 3.3 Globulin 4.2 Albumin/Globulin Ratio 0.8 L Urine Color Urine Clarity Urine pH Ur Specific Mcgrath Urine Protein Urine Glucose (UA) Urine Ketones Urine Occult Blood Urine Nitrite Urine Bilirubin Urine Urobilinogen Ur Leukocyte Esterase Urine RBC Urine WBC Ur Squamous Epith Cells Calcium Oxalate Crystal Urine Bacteria Urine Mucus 04/19/22 04/19/22 21:05 21:05 WBC RBC Hgb Hct MCV MCH MCHC RDW Std Deviation RDW Coeff of Mae Plt Count MPV Immature Gran % (Auto) Neut % (Auto) Lymph % (Auto) [place] % (Auto) Eos % (Auto) Baso % (Auto) Absolute Neuts (auto) Absolute Lymphs (auto) Nucleated RBC % PT INR APTT Sodium Potassium Chloride Carbon Dioxide Anion Gap BUN Creatinine Estim Creat Clear Calc Est GFR (MDRD) Af Amer Est GFR (MDRD) Non-Af BUN/Creatinine Ratio Glucose Lactic Acid 0.8 Calcium Total Bilirubin AST ALT Alkaline Phosphatase Total Protein Albumin Globulin Albumin/Globulin Ratio Urine Color Yellow Urine Clarity Clear Urine pH 6.0 Ur Specific Mc[place]ath 1.015 Urine Protein 15 H Urine Glucose (UA) Normal Urine Ketones Negative Urine Occult Blood 10 H Urine Nitrite Negative Urine Bilirubin Negative Urine Urobilinogen Normal Ur Leukocyte Esterase Negative Urine RBC 0 SEEN Urine WBC 0 SEEN Ur Squamous Epith Cells 0 SEEN Calcium Oxalate Crystal RARE Urine Bacteria 0 SEEN Urine Mucus 0 SEEN Radiography Diagnostic Testing: Clinical Impression(s) from Imaging Studies Chest X-Ray 04/19/22 21:30 IMPRESSION: No radiographic evidence of acute cardiopulmonary disease. Electronically Signed: Reji Bonner MD at 21:43 EST , EKG Initial EKG: Attestation: I personally reviewed and interpreted this EKG as follows: Comments: Sinus rate of 109, no ST changes, QTc 460. Discharge Plan Triage Chief Complaint: Fever ED Provider: Wali Lofton Dx/Rx/DC Orders Clinical Impression: Fever, Cellulitis of right wrist, Cough, History of dementia, Anemia, Hypokalemia Instructions: ED Cellulitis, ED Fever Control (Adult) Prescriptions: New cephalexin [cephalexin] 500 mg capsule 500 mg PO Q6 Qty: 20 0RF No Action lisinopril 20 mg tablet 20 mg PO DAILY amlodipine 10 mg tablet 10 mg PO DAILY Label Comments: Take 1 tablet by mouth daily Primary Care Provider: Az Bernardo Referrals: Az Bernardo MD [Primary Care Provider] - 3-5 Days Activity Restrictions/Additional Instructions: COVID and flu negative. Chest x-ray negative. Urine negative. Labs with anemia hemoglobin 7.5 stable from the previous 2 over the last 3 months. Potassium was 3.3. Monitor for any rectal bleeding. Take antibiotic as prescribed for your cellulitis. Return if worsening symptoms. Disposition Disposition: Home, Self Care Discharge Date/Time: 04/19/22 23:52
[2022-04-19 21:11] VITALS: BP 104/74; PULSE 95; RESP 17; TEMP 37.9; O2SAT 99
[2022-04-19 21:20] LABS: Bacteria 0 SEEN /hpf (None Seen); Mucous, Urine 0 SEEN /hpf (<or=2+); Red Blood Cells-Urine 0 SEEN /hpf (0-5); Squamous Epithelial Cells - UA 0 SEEN /hpf (5-10); White Blood Cells 0 SEEN /hpf (0-5)
[2022-04-19 21:23] LABS: Absolute Neutrophil Count 9.2 X10^3/uL (2.0-7.7); Basophil# 0.04 X10^3/uL; Basophil% 0.3 % (0-1); Eosinophil# 0.04 X10^3/uL; Eosinophils% 0.3 % (0-5); Hematocrit 24.8 % (37-47); Hemoglobin 7.5 g/dL (12.0-15.0); Lymphocyte % 11.7 % (19-41); Mean Corp Hgb Conc 30.2 g/dL (32-36); Mean Corpuscular Hgb 23.5 pg (27.0-32.0); Mean Corpuscular Volume 77.7 fL (81-99); Mean Platelet Vol. 9.4 fl (6.2-12.0); Monocyte# 1.24 X10^3/uL; Monocyte% 10.3 % (0-10); NRBC Flagged by Analyzer 0 % (0-5); Neutrophil # 9.23 X10^3/uL (2.7-7.7); Neutrophil % 76.9 % (47-70); Platelet Count 585 K/mm3 (150-450); RBC Distribution Width CV 18.5 % (11.6-14.6); RBC Distribution Width SD 52.5 fl (35.1-43.9); Red Blood Count 3.19 M/mm3 (4.2-5.4)
[2022-04-19 21:24] LABS: Color, Urine Yellow (Yellow); Glucose, Dipstick Normal (Normal); Ketone-Dipstick Negative (Negative); Leukocyte Esterase-Dipstick Negative /ul (Negative); Nitrite-Dipstick Negative (Negative); Occult Blood-Urine 10 /ul (Negative); Protein-Dipstick 15 mg/dl (Negative); Specific Gravity, Urine 1.015 (1.002-1.030); Urine Bilirubin Dipstick Negative (Negative); Urine Clarity Clear (Clear); Urine Urobilinogen Normal (Normal)
--- NOTE | 2022-04-19 21:30 | RAD_ITS ---
INDICATION: Cough EXAMINATION/TECHNIQUE: X-RAY - XR Chest 2 Views COMPARISON: None. FINDINGS: LUNGS: Emphysematous lungs. No consolidation, edema or effusion. No pneumothorax. MEDIASTINUM AND CARDIOVASCULAR STRUCTURES: Cardiac silhouette not enlarged. Central airways and mediastinal contour are unremarkable. RAD/Chest PA and Lateral IMPRESSION: No radiographic evidence of acute cardiopulmonary disease. Electronically Signed: Reji Bonner MD at 21:43 EST ,
[2022-04-19 21:36] LABS: Calcium Oxalate Crystals Ur RARE /hpf (<or=2+)
[2022-04-19 21:44] LABS: ALB/GLOB Ratio 0.8 RATIO (0.9-2.4); AST(SGOT) 17 U/L (15-37); Alanine Aminotransfer ALT/SGPT 8 U/L (13-56); Albumin, Serum 3.3 g/dL (3.2-5.0); Alkaline Phosphatase 134 U/L (45-117); Anion Gap 9 (5-15); BUN 27 mg/dL (7-18); BUN/Creat Ratio 39.2 RATIO (10-20); Calcium,Total 9.1 mg/dL (8.5-10.1); Chloride 101 mmol/L (98-107); Creatinine, Serum 0.69 mg/dL (0.55-1.02); EST Glomerular Filtration Rate 88 mL/min (>60); Est Glom Filt Rate - Afr Amer 107 mL/min (>60); Estimated Creatinine Clearance 37.02 ml/min; Globulin 4.2 g/dL (2.2-4.2); Glucose 112 mg/dL (74-106); Potassium 3.3 mmol/L (3.5-5.1); Protein, Total 7.5 g/dL (6.4-8.2); Sodium Level 136 mmol/L (136-145)
[2022-04-19 21:52] LABS: International Normalized Ratio 1.1
[2022-04-19 21:53] LABS: Partial Thromboplast Time 29.8 Seconds (24.1-36.2)
[2022-04-19 21:54] LABS: Lactic Acid 0.8 mmol/L (0.4-1.9)
[2022-04-19] MEDS: Acetaminophen 500 MG Tablet 1000 MG PO (21:56)
[2022-04-19] MEDS: Potassium Chloride Oral Tablet 20 MEQ PO (21:56)
--- NOTE | 2022-04-19 22:55 | RAD_ITS ---
INDICATION: Swelling EXAMINATION/TECHNIQUE: X-RAY - RIGHT XR Wrist Min 3 Views 3 VIEWS COMPARISON: None. FINDINGS: SOFT TISSUES: Circumferential soft tissue swelling. No soft tissue gas or unexpected radiopaque foreign body. TFCC calcification. BONES/JOINTS: Demineralized. No acute fracture or subluxation. Normal alignment. First carpometacarpal and scaphoid trapezium joint space narrowing, subchondral sclerosis, and osteophytes with remodeling. First MCP joint space narrowing and osteophytes. No sclerotic or destructive changes observed. RAD/Wrist min 3 Views IMPRESSION: TFCC calcification may represent old injury or CPPD. Degenerative change most prominent about the first CMC joint and scaphoid. Electronically Signed: Reji Bonner MD at 23:07 EST ,
[2022-04-19] MEDS: Cephalexin 250 MG Capsule 500 MG PO (23:50)
[2022-04-19 23:51] VITALS: O2SAT 99
== END 2022-04-19 23:52 | disposition home or self-care (01) ==
PROVIDERS: Emergency Provider Emergency Medicine; PCP Family Medicine; Visit Provider Emergency Medicine
DX: L03.113 Cellulitis of right upper limb (principal); I10 Essential (primary) hypertension; R50.9 Fever, unspecified; R05.9 Cough, unspecified; D64.9 Anemia, unspecified; E87.6 Hypokalemia; R35.0 Frequency of micturition; M79.89 Other specified soft tissue disorders
CPT/HCPCS: 71046; 73110; 80053; 81001; 83605; 85025; 85610; 85730; 87040; 87086; 87428; 93005; 96360; 99285; J7030; A4216

== ENCOUNTER → 2022-05-28 | Outpatient (CLI) | payer MEDICARE, SELFPAY ==
[2022-05-28 10:23] LABS: Absolute Lymphocyte Count 1.75 X10^3/uL (0.83-4.51); Absolute Neutrophil Count 4.7 X10^3/uL (2.0-7.7); Basophil# 0.06 X10^3/uL; Basophil% 0.8 % (0-1); Eosinophil# 0.33 X10^3/uL; Eosinophils% 4.3 % (0-5); Hematocrit 32.5 % (37-47); Hemoglobin 9.6 g/dL (12.0-15.0); Lymphocyte # 1.75 X10^3/ul (0.83-4.51); Lymphocyte % 22.7 % (19-41); Mean Corp Hgb Conc 29.5 g/dL (32-36); Mean Corpuscular Hgb 23.6 pg (27.0-32.0); Mean Platelet Vol. 9.9 fl (6.2-12.0); Monocyte# 0.83 X10^3/uL; Monocyte% 10.8 % (0-10); NRBC Flagged by Analyzer 0 % (0-5); Neutrophil # 4.73 X10^3/uL (2.7-7.7); Neutrophil % 61.1 % (47-70); Platelet Count 479 K/mm3 (150-450); RBC Distribution Width CV 18.4 % (11.6-14.6); RBC Distribution Width SD 52.7 fl (35.1-43.9); Red Blood Count 4.06 M/mm3 (4.2-5.4); White Blood Count 7.7 K/mm3 (4.4-11.0)
[2022-05-28 10:38] LABS: Vitamin B12 235 pg/mL (211-911)
[2022-05-28 11:03] LABS: ALB/GLOB Ratio 0.8 RATIO (0.9-2.4); AST(SGOT) 20 U/L (15-37); Alanine Aminotransfer ALT/SGPT 13 U/L (13-56); Albumin, Serum 3.3 g/dL (3.2-5.0); Alkaline Phosphatase 141 U/L (45-117); Anion Gap 7 (5-15); BUN 13 mg/dL (7-18); BUN/Creat Ratio 22.7 RATIO (10-20); Chloride 104 mmol/L (98-107); Cholesterol 230 mg/dL (200); Creatinine, Serum 0.57 mg/dL (0.55-1.02); EST Glomerular Filtration Rate 109 mL/min (>60); Est Glom Filt Rate - Afr Amer 132 mL/min (>60); Ferritin 20 ng/mL (8-252); Globulin 4.1 g/dL (2.2-4.2); Glucose 106 mg/dL (74-106); High Density Lipoprotein 90 mg/dL; Iron 21 ug/dL (50-170); Iron Binding Capacity,Total 385 ug/dL (250-450); Potassium 3.3 mmol/L (3.5-5.1); Protein, Total 7.4 g/dL (6.4-8.2); Sodium Level 137 mmol/L (136-145); Thyroid Stim Hormone (TSH) 1.25 uIU/mL (0.358-3.74); Triglycerides 52 mg/dL; Very Low Density Lipoprotein 10 mg/dL (5-40)
== END | disposition home or self-care (01) ==
LOC: MFPLAB 08:26
PROVIDERS: PCP Family Medicine; Referring Provider Family Medicine; Visit Provider Family Medicine
DX: I10 Essential (primary) hypertension (principal); D64.9 Anemia, unspecified; E78.5 Hyperlipidemia, unspecified
CPT/HCPCS: 36415; 80053; 80061; 82607; 82728; 82746; 83540; 83550; 84443; 85025

== ENCOUNTER → 2022-07-01 | Outpatient (CLI) | payer MEDICARE, SELFPAY ==
[2022-07-01 10:15] LABS: Absolute Lymphocyte Count 1.42 X10^3/uL (0.83-4.51); Absolute Neutrophil Count 3.4 X10^3/uL (2.0-7.7); Basophil# 0.07 X10^3/uL; Basophil% 1.2 % (0-1); Eosinophil# 0.31 X10^3/uL; Eosinophils% 5.2 % (0-5); Hematocrit 36.2 % (37-47); Lymphocyte # 1.42 X10^3/ul (0.83-4.51); Mean Corp Hgb Conc 30.4 g/dL (32-36); Mean Corpuscular Hgb 24.8 pg (27.0-32.0); Mean Corpuscular Volume 81.5 fL (81-99); Mean Platelet Vol. 9.6 fl (6.2-12.0); Monocyte# 0.68 X10^3/uL; Monocyte% 11.5 % (0-10); NRBC Flagged by Analyzer 0 % (0-5); Neutrophil # 3.42 X10^3/uL (2.7-7.7); Neutrophil % 57.9 % (47-70); POSITIVE MORPHOLOGY YES; Platelet Count 347 K/mm3 (150-450); RBC Distribution Width CV 20.2 % (11.6-14.6); RBC Distribution Width SD 59.7 fl (35.1-43.9); Red Blood Count 4.44 M/mm3 (4.2-5.4); White Blood Count 5.9 K/mm3 (4.4-11.0)
[2022-07-01 10:23] LABS: Differential Indicated SCAN CRITERIA MET
[2022-07-01 10:39] LABS: Ferritin 36 ng/mL (8-252); Iron 35 ug/dL (50-170); Iron Binding Capacity,Total 328 ug/dL (250-450)
[2022-07-01 11:56] LABS: Anisocytosis 1+
== END | disposition home or self-care (01) ==
LOC: MFPLAB 08:35
PROVIDERS: PCP Family Medicine; Visit Provider Family Medicine
DX: D64.9 Anemia, unspecified (principal)
CPT/HCPCS: 36415; 82728; 83540; 83550; 85025

== ENCOUNTER 2022-07-20 19:13 | Emergency (ER) | payer MEDICARE, SELFPAY ==
[2022-07-20 19:14] VITALS: BP 166/78; PULSE 101; RESP 15; TEMP 37; O2SAT 97
[2022-07-20 19:58] VITALS: BMI 19.2
[2022-07-20 21:14] VITALS: BP 177/82; PULSE 104; RESP 19; O2SAT 97
[2022-07-20] MEDS: Diphth,Pertuss(Acell),Tet Vac 0.5 ML Vial IM (21:15)
[2022-07-20] MEDS: Lidocaine 1%/Epi 1:100 (30ml) 30 ML VIAL 10 ML INFILT (22:44)
--- NOTE | 2022-07-20 22:56 | EDS_ITS ---
HPI History of Present Illness Chief Complaint: Fall Narrative Narrative: Patient is a very pleasant 77-year-old female who is presenting with a unwitnessed fall in the driveway at home. Patient lives at home with her . Patient was found laying on the ground by her neighbor. Patient is on no blood thinners. Unknown loss of consciousness. Patient says that she did remember falling, she believes that she lost her balance. Patient does have a history of dementia. Patient is alert and orient x3, GCS 15. Patient states that she has no headache, no neck pain. She does have some swelling to the right shoulder with some ecchymosis. Full range of motion of right shoulder with no pain. Patient is here with her [id number]. Patient does have a history of hyponatremia. Patient believes that she lost her balance and fell. We are not certain if she had a mechanical fall or not. Patient states that she has had no headache, chest pain or shortness of breath or any symptoms all day. Patient is supposed to be using a walker that she does not. Patient did not hav e her cane or walker outside with her. Patient looks extremely well, A&O x3. Patient is pleasant, does not want to have a medical work-up at this time even that was recommended because we do not know why the patient fell. However she is completely asymptomatic. No nausea vomiting, no headache, no neck pain. No chest pain or shortness of breath. Patient states she is felt fine all day today. Patient lives at home with her . Patient's son and [id number] who is at bedside are in town helping take care of patient's . [facility] Medical History (Updated 07/20/22 @ 23:[address] Bala Pate, DO) Dementia GI bleed Hypertension Hyponatremia Home Medications amlodipine 10 mg tablet 10 mg PO DAILY 07/23/21 [History Last Taken Unknown] buspirone 5 mg tablet 5 mg PO DAILY 07/20/22 [History Last Taken Unknown] mirtazapine 15 mg tablet 15 mg PO QHS 07/20/22 [History Last Taken Unknown] vitamin B complex (B Complex-Vitamin B12 tablet) tab 07/20/22 [History Last Taken Unknown] vitamin B complex (B Complex-Vitamin B12 tablet) tab 07/20/22 [History Last Taken Unknown] Allergy/AdvReac Type Severity Reaction Status Date / Time rivaroxaban [From Xarelto] AdvReac BLOOD IN Verified 07/20/22 19:18 STOOL Surgical History History of total replacement of both hip joints Social History household members: other details: She notes that her son currently lives with her. Smoking Status: Never smoker alcohol intake: current alcohol intake frequency: a few times a month Alcohol type: wine substance use type: does not use ROS ROS ED ROS Narrative REVIEW OF SYSTEMS: Unless otherwise stated in this report the patient's positive and negative responses for review of systems for constitutional, eyes, ENT, cardiovascular, respiratory, gastrointestinal, neurological, , musculoskeletal, and integument systems and related systems to the presenting problem are either stated in the history of present illness or were not pertinent or were negative for the symptoms and/or complaints related to the presenting medical problem. EXAM Physical Exam Narrative Exam Narrative: Vital signs reviewed and patient is not hypoxic. General: The patient appears well and in no apparent distress. Patient is resting comfortably on cart. Not toxic, lethargic, or listless. Skin: Warm, dry, no pallor noted. There is no rash noted. Head: Normocephalic, patient has a 3 cm complex laceration to the right occipital area. No active bleeding. No pulsatile bleeding. Patient has no midline or paracervical tenderness to palpation. Full range of motion of cervical spine no difficulty. Eye: Normal conjunctiva, no drainage, EOMI. PERRL. Ears, Nose, Mouth, and Throat: oral mucosa is moist. Nares patent. Mouth without vesicles. Patient has no hemotympanum, silva signs, or raccoon eyes. Cardiovascular: Regular Rate and Rhythm, no murmurs, gallops, or rubs Respiratory: Patient is in no distress, no accessory muscle use, lungs are clear to auscultation, no wheezing, rales or rhonchi Back: non-tender, no CVA tenderness bilaterally to percussion. NO CTLS midline or paraspinal tenderness to palpation. GI: Soft, no tenderness to palpation, no masses appreciated. No rebound, guarding, or rigidity noted. Musculoskeletal: The patient has full range of motion of all extremities and joints with no difficulty. Patient has no motor, no sensory deficits. Neurological: A&O x4, normal speech, no focal neurological deficits. Psychiatric: Cooperative Const Vital Signs: 07/20/22 19:14 07/20/22 19:55 07/20/22 21:14 Temperature 98.6 F Temperature Source Temporal Pulse Rate 101 H 104 H Respiratory Rate 15 19 H Blood Pressure 166/78 H 177/82 H Blood Pressure Mean 107 113 Pulse Ox 97 97 Oxygen Delivery Method Room Air Room Air Room Air MDM MDM MDM Narrative Medical decision making narrative: Lengthy discussion was had at bedside for 5 to 10 minutes with patient and [id number]. Ultimately patient does not want to have any medical work-up, no CAT scans of her head, neck, no lab work done, no EKG. Gcyzbbcc-oz-mdr is worried about her history of hyponatremia, patient does not want any testing to be done, she just wants her laceration to be repaired. Patient has a functional decision making capacity to make this decision. Patient is alert and orient x3, GCS 15. Treatment and Re-Evaluation :: Procedure note: Scalp laceration 3 cm, complex Laceration repair: Patient had a 3 cm linear, 1.5 cm deep scalp laceration that was down to the loose tissue of her right occipital area. Done under sterile conditions. The use of Shur-Clens prep the area. Local injection with lidocaine 1% with epinephrine was used, approximately 7 cc. The wound was irrigated copiously with normal saline. The wound was explored there was no evidence of foreign material. The laceration was approximated with 4-0 Vicryl, 4 subcuticular sutures were placed. 9 calderon were placed. Patient tolerated the procedure well. Patient's lssxaahf-fo-hez was at bedside. The patient was neurovascularly intact post. the patient had bacitracin applied to the laceration and a dry sterile dressing was place. The patient will need to follow-up in the next 10-12 days for removal. Patient had a lengthy stay in the ER secondary to patient volume and critical patients. Blame less apologies were given. Patient was very understanding and thankful as was Tylenol. Patient has been drinking eating at discharge well. Patient was given Tylenol prior to discharge secondary to mild headache and shoulder pain that was developing. Patient has had ice on her right shoulder. Wound care instructions were discussed at bedside and on discharge paperwork. Discharge Plan Triage Chief Complaint: Fall ED Provider: Bala Pate Dx/Rx/DC Orders Clinical Impression: CHI (closed head injury), Complex laceration of scalp Instructions: ED Head Injury (Adult), ED Laceration Scalp Stitches or [place] Prescriptions: No Action amlodipine 10 mg tablet 10 mg PO DAILY Label Comments: Take 1 tablet by mouth daily buspirone 5 mg tablet 5 mg PO DAILY Label Comments: Take 1 tablet by mouth daily vitamin B complex [B Complex-Vitamin B12] Tablet Label Comments: Take 1 tablet by mouth daily vitamin B complex [B Complex-Vitamin B12] Tablet Label Comments: Take 1 tablet by mouth daily mirtazapine 15 mg tablet 15 mg PO QHS Label Comments: TAKE 1 TABLET BY MOUTH NIGHTLY Primary Care Provider: Az Bernardo Referrals: Az Bernardo MD [Primary Care Provider] - Activity Restrictions/Additional Instructions: Calderon to be removed in 10-12 days. Apply antibiotic ointment 2 or 3 times a day to the staple/laceration to help with wound healing and help prevent infe ction. You may take a shower tomorrow to wash her hair. Use Tylenol as needed for headache, aches or pains along with ice as discussed at bedside. You have 4 stitches underneath the skin that will dissolve on their own. You had 9 calderon placed. Disposition Disposition: Home, Self Care
[2022-07-20] MEDS: Acetaminophen 500 MG Tablet 1000 MG PO (23:00)
[2022-07-20 23:01] VITALS: BP 141/67; PULSE 78; RESP 16; O2SAT 97
== END 2022-07-20 23:07 | disposition home or self-care (01) ==
PROVIDERS: Emergency Provider Emergency Medicine; PCP Family Medicine; Visit Provider Emergency Medicine
DX: S01.01XA Laceration without foreign body of scalp, initial encounter (principal); I10 Essential (primary) hypertension; S09.8XXA Other specified injuries of head, initial encounter; W18.30XA Fall on same level, unspecified, initial encounter; Y92.008 Other place in unspecified non-institutional (private) residence as the place of occurrence of the external cause; Z96.643 Presence of artificial hip joint, bilateral; Z23 Encounter for immunization
CPT/HCPCS: 13121; 90471; 99283

== ENCOUNTER → 2022-07-30 | Outpatient (CLI) | payer MEDICARE, SELFPAY ==
--- NOTE | 2022-07-30 11:51 | RAD_ITS ---
HISTORY: SHOULDER PAIN. TECHNIQUE: XR Shoulder Min 2 Views. COMPARISON: None. FINDINGS: BONES : [Fracture of the mid clavicle with over one shaft with displacement of the medial fragment superiorly. Generalized osteopenia. JOINTS: Widening of the acromioclavicular joint. No glenohumeral dislocation. Degenerative change. SOFT TISSUES: Mild right apical pulmonary scarring and facet calcification. RAD/Shoulder min 2 Views IMPRESSION: Displaced and overlapped fracture of the right mid clavicle. Type II acromioclavicular separation. Electronically Signed: Dolly Monsalve MD at 12:39 EDT ,
--- NOTE | 2022-07-30 11:51 | RAD_ITS ---
HISTORY SHOULDER PAIN. TECHNIQUE: XR Clavicle Unilateral. COMPARISON: None. FINDINGS: BONES : Comminuted fracture of the right mid clavicle with one shaft with displacement. Generalized osteopenia. JOINTS: Widening of the acromioclavicular joint. No glenohumeral dislocation. Degenerative change. SOFT TISSUES: Vascular calcification. RAD/Clavicle IMPRESSION: Displaced and overlapped fracture of the right mid clavicle. Mild acromioclavicular separation. Electronically Signed: Dolly Monsalve MD at 12:38 EDT ,
== END | disposition home or self-care (01) ==
LOC: MTRAD 11:50
PROVIDERS: PCP Family Medicine; Referring Provider Family Medicine; Visit Provider Family Medicine
DX: M25.511 Pain in right shoulder (principal)
CPT/HCPCS: 73000; 73030

== ENCOUNTER → 2022-08-31 | Outpatient (CLI) | payer MEDICARE, SELFPAY ==
--- NOTE | 2022-08-31 14:20 | RAD_ITS ---
EXAM: XR RIGHT WRIST COMPLETE, 3 OR MORE VIEWS CLINICAL INDICATION: pain and swelling pain and swelling TECHNIQUE: Frontal, lateral and oblique views of the right wrist. COMPARISON: X-ray right breast 04/19/2022. FINDINGS: BONES/JOINTS: There is degenerative arthrosis of the first carpometacarpal joint and the navicular-multangular joints. There is chondrocalcinosis in the ulnar-carpal interspace, which may be associated with calcium pyrophosphate deposition disease. No acute fracture. No subluxation. Normal alignment. No sclerotic or destructive changes observed. SOFT TISSUES: There is nonspecific soft tissue swelling. No radiopaque foreign body. RAD/Wrist min 3 Views IMPRESSION: 1. Nonspecific soft tissue swelling. 2. Degenerative changes, as above. 3. No demonstrated fracture, dislocation, or destructive osseous lesion. Electronically Signed: Vladimir Beavers MD at 4:53 EDT Reading Location ID and State: [facility] / [place] , Service support ,
== END | disposition home or self-care (01) ==
PROVIDERS: PCP Family Medicine; Referring Provider Family Medicine; Visit Provider Family Medicine
DX: L03.114 Cellulitis of left upper limb (principal)
CPT/HCPCS: 73110

== ENCOUNTER → 2022-09-01 | Outpatient (CLI) | payer MEDICARE, SELFPAY ==
[2022-09-01 09:46] LABS: Mucous, Urine 0 SEEN /hpf (<or=2+)
[2022-09-01 12:25] LABS: Absolute Lymphocyte Count 1.31 X10^3/uL (0.83-4.51); Basophil# 0.06 X10^3/uL; Basophil% 0.5 % (0-1); Eosinophil# 0.13 X10^3/uL; Eosinophils% 1.1 % (0-5); Hematocrit 36.4 % (37-47); Hemoglobin 11.6 g/dL (12.0-15.0); Lymphocyte # 1.31 X10^3/ul (0.83-4.51); Lymphocyte % 11.2 % (19-41); Mean Corp Hgb Conc 31.9 g/dL (32-36); Mean Corpuscular Hgb 27.5 pg (27.0-32.0); Mean Corpuscular Volume 86.3 fL (81-99); Mean Platelet Vol. 10.6 fl (6.2-12.0); Monocyte# 1.17 X10^3/uL; NRBC Flagged by Analyzer 0 % (0-5); Neutrophil # 8.96 X10^3/uL (2.7-7.7); Neutrophil % 76.9 % (47-70); Platelet Count 349 K/mm3 (150-450); RBC Distribution Width CV 18.9 % (11.6-14.6); RBC Distribution Width SD 59.7 fl (35.1-43.9); Red Blood Count 4.22 M/mm3 (4.2-5.4); White Blood Count 11.7 K/mm3 (4.4-11.0)
[2022-09-01 12:46] LABS: Color, Urine Yellow (Yellow); Glucose, Dipstick Normal (Normal); Ketone-Dipstick 5 mg/dl (Negative); Leukocyte Esterase-Dipstick 500 /ul (Negative); Nitrite-Dipstick Negative (Negative); Occult Blood-Urine 25 /ul (Negative); Protein-Dipstick 100 mg/dl (Negative); Urine Bilirubin Dipstick Negative (Negative); Urine Clarity Sl. Cloudy (Clear); Urine Urobilinogen 1 mg/dl (Normal)
[2022-09-01 12:48] LABS: ALB/GLOB Ratio 0.7 RATIO (0.9-2.4); AST(SGOT) 12 U/L (15-37); Alanine Aminotransfer ALT/SGPT 14 U/L (13-56); Albumin, Serum 3.2 g/dL (3.2-5.0); Alkaline Phosphatase 121 U/L (45-117); Anion Gap 6 (5-15); BUN 20 mg/dL (7-18); BUN/Creat Ratio 27.5 RATIO (10-20); Calcium,Total 8.9 mg/dL (8.5-10.1); Chloride 107 mmol/L (98-107); Cholesterol 247 mg/dL (200); Creatinine, Serum 0.73 mg/dL (0.55-1.02); EST Glomerular Filtration Rate 83 mL/min (>60); Est Glom Filt Rate - Afr Amer 100 mL/min (>60); Ferritin 78 ng/mL (8-252); Globulin 4.4 g/dL (2.2-4.2); Glucose 96 mg/dL (74-106); High Density Lipoprotein 103 mg/dL; Iron 33 ug/dL (50-170); Iron Binding Capacity,Total 289 ug/dL (250-450); Potassium 3.3 mmol/L (3.5-5.1); Protein, Total 7.6 g/dL (6.4-8.2); Sodium Level 137 mmol/L (136-145); Triglycerides 58 mg/dL; Uric Acid 4.1 mg/dL (2.6-6.0); Very Low Density Lipoprotein 12 mg/dL (5-40)
[2022-09-01 12:53] LABS: Bacteria 1+ /hpf (None Seen); Calcium Oxalate Crystals Ur 1+ /hpf (<or=2+); Red Blood Cells-Urine 0-5 SEEN /hpf (0-5); Squamous Epithelial Cells - UA 0-5 SEEN /hpf (5-10); White Blood Cells 25-50 SEEN /hpf (0-5)
[2022-09-01 13:03] LABS: Vitamin B12 297 pg/mL (211-911)
== END | disposition home or self-care (01) ==
LOC: MFPLAB 09:42
PROVIDERS: PCP Family Medicine; Visit Provider Family Medicine
DX: E61.1 Iron deficiency (principal); M10.9 Gout, unspecified; E53.9 Vitamin B deficiency, unspecified; E78.5 Hyperlipidemia, unspecified
CPT/HCPCS: 36415; 80053; 80061; 81001; 82607; 82728; 83540; 83550; 84550; 85025

== ENCOUNTER → 2022-10-13 | Outpatient (CLI) | payer MEDICARE, SELFPAY ==
--- NOTE | 2022-10-13 14:42 | RAD_ITS ---
STUDY: X-RAY CHEST REASON FOR EXAM: Female, 77 years old. Acute bronchitis. TECHNIQUE: Frontal and lateral views of the chest. COMPARISON: Chest dated April 19, 2022. FINDINGS: Stable borderline cardiomegaly, aortic tortuosity with calcification, prominent central pulmonary arteries and marked hyperinflation with flattening of the hemidiaphragms. No active or acute cardiopulmonary disease. No abnormality of the visualized soft tissue structures of the upper abdomen. RAD/Chest PA and Lateral IMPRESSION: Stable cardiomegaly with findings compatible with COPD. No active or acute cardiopulmonary disease. Electronically Signed: Edwin Banks MD at 15:21 EDT ,
== END | disposition home or self-care (01) ==
LOC: MTRAD 14:37
PROVIDERS: PCP Family Medicine; Referring Provider Family Medicine; Visit Provider Family Medicine
DX: J20.9 Acute bronchitis, unspecified (principal)
CPT/HCPCS: 71046

== ENCOUNTER → 2023-01-04 | Outpatient (CLI) | payer MEDICARE, SELFPAY ==
[2023-01-04 12:39] LABS: Absolute Lymphocyte Count 1.71 X10^3/uL (0.83-4.51); Absolute Neutrophil Count 5.7 X10^3/uL (2.0-7.7); Basophil# 0.07 X10^3/uL; Basophil% 0.8 % (0-1); Eosinophil# 0.43 X10^3/uL; Eosinophils% 4.9 % (0-5); Hematocrit 40.6 % (37-47); Hemoglobin 12.8 g/dL (12.0-15.0); Lymphocyte # 1.71 X10^3/ul (0.83-4.51); Lymphocyte % 19.3 % (19-41); Mean Corp Hgb Conc 31.5 g/dL (32-36); Mean Corpuscular Hgb 29.5 pg (27.0-32.0); Mean Corpuscular Volume 93.5 fL (81-99); Mean Platelet Vol. 10.8 fl (6.2-12.0); Monocyte# 0.89 X10^3/uL; NRBC Flagged by Analyzer 0 % (0-5); Neutrophil # 5.74 X10^3/uL (2.7-7.7); Neutrophil % 64.8 % (47-70); Platelet Count 347 K/mm3 (150-450); RBC Distribution Width CV 13.7 % (11.6-14.6); RBC Distribution Width SD 46.9 fl (35.1-43.9); Red Blood Count 4.34 M/mm3 (4.2-5.4); White Blood Count 8.9 K/mm3 (4.4-11.0)
[2023-01-04 13:16] LABS: Vitamin B12 403 pg/mL (211-911)
[2023-01-04 13:54] LABS: ALB/GLOB Ratio 1.1 RATIO (0.9-2.4); AST(SGOT) 18 U/L (15-37); Alanine Aminotransfer ALT/SGPT 16 U/L (13-56); Albumin, Serum 3.9 g/dL (3.2-5.0); Alkaline Phosphatase 103 U/L (45-117); Anion Gap 9 (5-15); BUN 20 mg/dL (7-18); BUN/Creat Ratio 23.3 RATIO (10-20); Calcium,Total 9.2 mg/dL (8.5-10.1); Chloride 106 mmol/L (98-107); Cholesterol 222 mg/dL (200); Creatinine, Serum 0.86 mg/dL (0.55-1.02); EST Glomerular Filtration Rate 68 mL/min (>60); Est Glom Filt Rate - Afr Amer 83 mL/min (>60); Ferritin 140 ng/mL (8-252); Globulin 3.7 g/dL (2.2-4.2); Glucose 95 mg/dL (74-106); High Density Lipoprotein 112 mg/dL; Iron 71 ug/dL (50-170); Iron Binding Capacity,Total 287 ug/dL (250-450); Potassium 3.7 mmol/L (3.5-5.1); Protein, Total 7.6 g/dL (6.4-8.2); Sodium Level 141 mmol/L (136-145); Thyroid Stim Hormone (TSH) 1.12 uIU/mL (0.358-3.74); Triglycerides 95 mg/dL; Very Low Density Lipoprotein 19 mg/dL (5-40)
[2023-01-11 06:08] LABS: VITAMIN B6 14.2 ug/L (3.4-65.2); Vitamin B1, Thiamine 180.6 nmol/L (66.5-200.0)
== END | disposition home or self-care (01) ==
LOC: MTLAB 10:20
PROVIDERS: PCP Family Medicine; Referring Provider Family Medicine; Visit Provider Family Medicine
DX: I10 Essential (primary) hypertension (principal); D64.9 Anemia, unspecified; E53.9 Vitamin B deficiency, unspecified
CPT/HCPCS: 36415; 80053; 80061; 82607; 82728; 82746; 83540; 83550; 84207; 84425; 84443; 85025

== ENCOUNTER → 2023-06-14 | Outpatient (CLI) | payer MEDICARE, SELFPAY ==
[2023-06-14 10:51] LABS: Bacteria 0 SEEN /hpf (None Seen); Mucous, Urine 0 SEEN /hpf (<or=2+); Red Blood Cells-Urine 0 SEEN /hpf (0-5); Squamous Epithelial Cells - UA 0 SEEN /hpf (5-10)
[2023-06-14 12:23] LABS: Absolute Lymphocyte Count 1.16 X10^3/uL (0.83-4.51); Basophil# 0.06 X10^3/uL; Basophil% 0.6 % (0-1); Eosinophil# 0.23 X10^3/uL; Eosinophils% 2.5 % (0-5); Hematocrit 38.4 % (37-47); Hemoglobin 12.5 g/dL (12.0-15.0); Lymphocyte # 1.16 X10^3/ul (0.83-4.51); Lymphocyte % 12.4 % (19-41); Mean Corp Hgb Conc 32.6 g/dL (32-36); Mean Corpuscular Hgb 30.3 pg (27.0-32.0); Mean Platelet Vol. 11.3 fl (6.2-12.0); Monocyte# 0.83 X10^3/uL; Monocyte% 8.9 % (0-10); NRBC Flagged by Analyzer 0 % (0-5); Neutrophil # 7.02 X10^3/uL (2.7-7.7); Neutrophil % 75.3 % (47-70); Platelet Count 273 K/mm3 (150-450); RBC Distribution Width CV 13.9 % (11.6-14.6); RBC Distribution Width SD 47.9 fl (35.1-43.9); Red Blood Count 4.13 M/mm3 (4.2-5.4); White Blood Count 9.3 K/mm3 (4.4-11.0)
[2023-06-14 12:36] LABS: Color, Urine Yellow (Yellow); Glucose, Dipstick Normal (Normal); Ketone-Dipstick 5 mg/dl (Negative); Leukocyte Esterase-Dipstick 25 /ul (Negative); Nitrite-Dipstick Negative (Negative); Occult Blood-Urine 10 /ul (Negative); Protein-Dipstick 30 mg/dl (Negative); Urine Clarity Clear (Clear); Urine Urobilinogen 4 mg/dl (Normal); Urine pH 6.5 (5.0 - 8.0)
[2023-06-14 12:38] LABS: Urine Bilirubin Dipstick 1 mg/dL (Negative)
[2023-06-14 12:39] LABS: Vitamin B12 673 pg/mL (211-911)
[2023-06-14 12:45] LABS: Calcium Oxalate Crystals Ur 1+ /hpf (<or=2+); Hyaline Cast 5-10 SEEN /lpf (0-5); White Blood Cells 0-5 SEEN /hpf (0-5)
[2023-06-14 13:37] LABS: ALB/GLOB Ratio 1.1 RATIO (0.9-2.4); AST(SGOT) 20 U/L (15-37); Alanine Aminotransfer ALT/SGPT 18 U/L (13-56); Albumin, Serum 3.7 g/dL (3.2-5.0); Alkaline Phosphatase 91 U/L (45-117); Anion Gap 4 (5-15); BUN 18 mg/dL (7-18); Calcium,Total 9.2 mg/dL (8.5-10.1); Chloride 106 mmol/L (98-107); Cholesterol 207 mg/dL (200); Creatinine, Serum 0.95 mg/dL (0.55-1.02); EST Glomerular Filtration Rate 61 mL/min (>60); Est Glom Filt Rate - Afr Amer 74 mL/min (>60); Ferritin 94 ng/mL (8-252); Globulin 3.5 g/dL (2.2-4.2); Glucose 82 mg/dL (74-106); High Density Lipoprotein 105 mg/dL; Iron 74 ug/dL (50-170); Iron Binding Capacity,Total 290 ug/dL (250-450); Potassium 3.7 mmol/L (3.5-5.1); Protein, Total 7.2 g/dL (6.4-8.2); Sodium Level 140 mmol/L (136-145); Thyroid Stim Hormone (TSH) 0.81 uIU/mL (0.358-3.74); Triglycerides 42 mg/dL; Very Low Density Lipoprotein 8 mg/dL (5-40)
== END | disposition home or self-care (01) ==
LOC: MFPLAB 10:50
PROVIDERS: PCP Family Medicine; Visit Provider Family Medicine
DX: I10 Essential (primary) hypertension (principal); E78.5 Hyperlipidemia, unspecified; E53.9 Vitamin B deficiency, unspecified
CPT/HCPCS: 36415; 80053; 80061; 81001; 82607; 82728; 82746; 83540; 83550; 83735; 84443; 85025

== ENCOUNTER → 2023-09-27 | Outpatient (CLI) | payer MEDICARE, SELFPAY ==
--- NOTE | 2023-09-27 14:55 | RAD_ITS ---
STUDY: X-RAY - PARANASAL SINUSES REASON FOR EXAM: Female, 78 years old. sinus pain and congestion TECHNIQUE: 3 view(s) of the paranasal sinuses were obtained. COMPARISON: None. FINDINGS: Normal visualized frontal, maxillary, ethmoidal and sphenoid sinuses. Normal visualized facial bones. The soft tissue structures are unremarkable. RAD/Sinuses min 3 Views IMPRESSION: Normal x-rays of the paranasal sinuses. Electronically Signed: Jonatan Montes MD at 19:52 EDT ,
== END | disposition home or self-care (01) ==
LOC: MTRAD 14:52
PROVIDERS: PCP Family Medicine; Referring Provider Family Medicine; Visit Provider Family Medicine
DX: J32.9 Chronic sinusitis, unspecified (principal)
CPT/HCPCS: 70220

== ENCOUNTER → 2023-12-14 | Outpatient (CLI) | payer MEDICARE, SELFPAY ==
--- NOTE | 2023-12-14 13:50 | RAD_ITS ---
EXAM: XR CHEST, 2 VIEWS CLINICAL INDICATION: barkey cough TECHNIQUE: Frontal and lateral views of the chest. COMPARISON: 10/13/2022 FINDINGS: LUNGS AND PLEURAL SPACES: Hyperinflated lungs without focal airspace disease. Mild diffuse interstitial prominence and apical scarring likely secondary to COPD. No pneumothorax. No effusion. HEART: No significant abnormality. Cardiac silhouette not enlarged. MEDIASTINUM: Central airways and mediastinal contour are unremarkable. BONES/JOINTS: Degenerative changes in the spine. No acute fracture. SOFT TISSUES: No significant abnormality. VASCULATURE: Atherosclerosis. RAD/Chest PA and Lateral IMPRESSION: Hyperinflated lungs without focal airspace disease. Mild diffuse interstitial prominence and apical scarring likely secondary to COPD. Electronically Signed: Jaren Johnson DO at 0:01 EDT ,
== END | disposition home or self-care (01) ==
PROVIDERS: PCP Family Medicine
DX: R05.9 Cough, unspecified (principal)
CPT/HCPCS: 71046

== ENCOUNTER → 2024-01-10 | Outpatient (CLI) | payer MEDICARE, SELFPAY ==
[2024-01-10 16:59] LABS: Bacteria 0 SEEN /hpf (None Seen); Mucous, Urine 0 SEEN /hpf (<or=2+); Red Blood Cells-Urine 0 SEEN /hpf (0-5)
[2024-01-10 17:39] LABS: Absolute Lymphocyte Count 1.63 X10^3/uL (0.83-4.51); Absolute Neutrophil Count 3.7 X10^3/uL (2.0-7.7); Basophil# 0.06 X10^3/uL; Basophil% 0.9 % (0-1); Eosinophil# 0.23 X10^3/uL; Eosinophils% 3.6 % (0-5); Hematocrit 39.3 % (37-47); Hemoglobin 13.1 g/dL (12.0-15.0); Lymphocyte # 1.63 X10^3/ul (0.83-4.51); Lymphocyte % 25.3 % (19-41); Mean Corp Hgb Conc 33.3 g/dL (32-36); Mean Corpuscular Hgb 30.5 pg (27.0-32.0); Mean Corpuscular Volume 91.4 fL (81-99); Mean Platelet Vol. 10.1 fl (6.2-12.0); Monocyte% 12.4 % (0-10); NRBC Flagged by Analyzer 0 % (0-5); Neutrophil # 3.69 X10^3/uL (2.7-7.7); Neutrophil % 57.5 % (47-70); Platelet Count 302 K/mm3 (150-450); RBC Distribution Width CV 13.2 % (11.6-14.6); RBC Distribution Width SD 44.3 fl (35.1-43.9); White Blood Count 6.4 K/mm3 (4.4-11.0)
[2024-01-10 17:56] LABS: Color, Urine Straw (Yellow); Glucose, Dipstick Normal (Normal); Ketone-Dipstick Negative (Negative); Leukocyte Esterase-Dipstick 25 /ul (Negative); Nitrite-Dipstick Negative (Negative); Occult Blood-Urine 10 /ul (Negative); Protein-Dipstick Negative (Negative); Specific Gravity, Urine 1.005 (1.002-1.030); Urine Bilirubin Dipstick Negative (Negative); Urine Clarity Clear (Clear); Urine Urobilinogen Normal (Normal)
[2024-01-10 17:56] LABS: Vitamin B12 877 pg/mL (211-911)
[2024-01-10 18:06] LABS: ALB/GLOB Ratio 1.1 RATIO (0.9-2.4); AST(SGOT) 20 U/L (15-37); Alanine Aminotransfer ALT/SGPT 22 U/L (13-56); Alkaline Phosphatase 99 U/L (45-117); Anion Gap 7 (5-15); BUN 25 mg/dL (7-18); BUN/Creat Ratio 33.2 RATIO (10-20); Calcium,Total 9.3 mg/dL (8.5-10.1); Chloride 103 mmol/L (98-107); Cholesterol 220 mg/dL (200); Creatinine, Serum 0.75 mg/dL (0.55-1.02); EST Glomerular Filtration Rate 79 mL/min (>60); Est Glom Filt Rate - Afr Amer 96 mL/min (>60); Ferritin 85 ng/mL (8-252); Globulin 3.8 g/dL (2.2-4.2); Glucose 100 mg/dL (74-106); High Density Lipoprotein 115 mg/dL; Iron 42 ug/dL (50-170); Iron Binding Capacity,Total 344 ug/dL (250-450); Magnesium 2.4 mg/dL (1.6-2.6); Potassium 3.4 mmol/L (3.5-5.1); Protein, Total 7.8 g/dL (6.4-8.2); Sodium Level 134 mmol/L (136-145); Triglycerides 40 mg/dL; Very Low Density Lipoprotein 8 mg/dL (5-40)
[2024-01-10 18:16] LABS: Squamous Epithelial Cells - UA 0-5 SEEN /hpf (5-10)
[2024-01-10 18:17] LABS: White Blood Cells 0-5 SEEN /hpf (0-5)
[2024-01-15 17:07] LABS: VITAMIN B6 45.9 ug/L (3.4-65.2); Vitamin B1, Thiamine 169.5 nmol/L (66.5-200.0)
== END | disposition home or self-care (01) ==
LOC: MTLAB 16:56
PROVIDERS: PCP Family Medicine; Referring Provider Family Medicine; Visit Provider Family Medicine
DX: I10 Essential (primary) hypertension (principal); E53.9 Vitamin B deficiency, unspecified; E61.1 Iron deficiency
CPT/HCPCS: 36415; 80053; 80061; 81001; 82607; 82728; 83540; 83550; 83735; 84207; 84425; 84443; 85025

== ENCOUNTER → 2024-11-30 | Outpatient (CLI) | payer MEDICARE, SELFPAY ==
[2024-11-30 18:59] LABS: Hematocrit 38.4 % (37-47); Hemoglobin 12.9 g/dL (12.0-15.0); Immature Granulocytes Count 0.040 X10^3/uL (0.0-0.0); Mean Corp Hgb Conc 33.6 g/dL (32-36); Mean Corpuscular Volume 88.7 fL (81-99); Mean Platelet Vol. 10.3 fl (6.2-12.0); NRBC Flagged by Analyzer 0 % (0-5); Platelet Count 366 K/mm3 (150-450); RBC Distribution Width CV 14.9 % (11.6-14.6); RBC Distribution Width SD 48.1 fl (35.1-43.9); Red Blood Count 4.33 M/mm3 (4.2-5.4); White Blood Count 9.1 K/mm3 (4.4-11.0)
[2024-11-30 19:09] LABS: AST(SGOT) 20 U/L (<=31); Alanine Aminotransfer ALT/SGPT 12 U/L (<=34); Albumin, Serum 4.0 g/dL (3.4-4.8); Alkaline Phosphatase 94 U/L (35-104); Anion Gap 11 (5-15); BUN 24 mg/dL (4-19); BUN/Creat Ratio 26.7 RATIO (10-20); Calcium,Total 8.9 mg/dL (7.6-11.0); Carbon Dioxide 25.3 mmol/L (21.0-32.0); Chloride 102 mmol/L (98-108); Cholesterol 210 mg/dL (<=200); Ferritin 77 ng/mL (22-378); Globulin 2.9 g/dL (2.2-4.2); Glucose 97 mg/dL (70-99); Low Density Lipoprotein Calc. 89 mg/dL; Potassium 4.1 mmol/L (3.3-5.1); Triglycerides 75 mg/dL; Very Low Density Lipoprotein 15 mg/dL (5-40); Vitamin B12 669 pg/mL (180-914); cholesterol:hdl ratio screen 1.98
[2024-11-30 19:35] LABS: Iron 76 ug/dL (50-170); Iron Binding Capacity,Total 271 ug/dL (250-450); Iron Binding Capacity,Unsat 195 ug/dL (228-428); Magnesium 2.4 mg/dL (1.5-2.2)
[2024-11-30 19:41] LABS: FOLATES,SERUM (FOLIC ACID) 26.10 ng/mL (4.60-34.80)
== END | disposition home or self-care (01) ==
LOC: MFPLAB 14:38
PROVIDERS: PCP Family Medicine; Visit Provider Family Medicine
DX: E53.9 Vitamin B deficiency, unspecified (principal); D64.9 Anemia, unspecified; E78.5 Hyperlipidemia, unspecified; I10 Essential (primary) hypertension
CPT/HCPCS: 36415; 80053; 80061; 82607; 82728; 82746; 83540; 83550; 83735; 84443; 85025